=== PATIENT | female | born 1950 | race African-American/Black ===

== ENCOUNTER → 2016-10-05 | Outpatient (CLI) | payer MEDICARE, OTHER ==
[~2016-10-05] MED LIST: 1-ME1LIQ PO; ACCUTES19 XX; APIX5TAB PO; ASPI81TA11 PO; ASPI81TA82 PO; ATOR1TAB18 PO; ATOR80TA41 PO; CALC1CAP PO; CALC667C PO; CARA1TAB6 PO; CEPH-460 PO; ENAL10TA PO; ENAL10TA7 PO; ENEMENE6 RECTAL; FREEKIT6; GABA300 PO; GABA300C5 PO; GLYC2SUP RECTAL; INSU-92; KION15SU PO; LANTUS2P SQ; NOVOLOGP2 SQ; ONETKIT9; OXYC30TA PO; PROT40TA PO; WALKER WHEELS/F1 MIS; WALKER/ADULT/FO1 MIS; [UNRECOGNIZED DRUG - CODE]; [UNRECOGNIZED DRUG - CODE]; [UNRECOGNIZED DRUG - SUPPLY]
[2016-10-05 07:59] LABS: HEMATOCRIT 37.7 % (35.0-46.0); MEAN CELL VOLUME 84.3 FL (80.0-100.0); MEAN CORPUSCULAR HEMOGLOBIN 26.2 PG (27.0-34.0); MEAN CORPUSCULAR HGB CONC 31.1 % (32.0-36.0); PLATELET COUNT 253 TH/MM3 (150-450); RED BLOOD COUNT 4.47 MIL/MM3 (4.00-5.30); RED CELL DISTRIBUTION WIDTH 15.3 % (11.6-17.2); REVIEW FLAG FINAL; WHITE BLOOD COUNT 7.6 TH/MM3 (4.0-11.0)
[2016-10-05 08:20] LABS: ANION GAP 13 MEQ/L (5-15); AST (GOT) 15 U/L (15-37); BICARBONATE 27.5 MEQ/L (21.0-32.0); BLOOD UREA NITROGEN 92 MG/DL (7-18); CHLORIDE 97 MEQ/L (98-107); GLOMERULAR FILTRATION RATE 4 ML/MIN (>89); GLUCOSE,FASTING 120 MG/DL (74-99); POTASSIUM 4.8 MEQ/L (3.5-5.1); SODIUM (NA) 137 MEQ/L (136-145)
[2016-10-05 08:22] LABS: ALT (GPT) 16 U/L (10-53)
[2016-10-05 08:24] LABS: ALKALINE PHOSPHATASE 108 U/L (45-117); HDL CHOLESTEROL 86.5 MG/DL (40.0-60.0); LDL CHOLESTEROL 93 MG/DL (0-99); TOTAL BILIRUBIN ADULT 0.2 MG/DL (0.2-1.0)
[2016-10-05 16:43] LABS: HEMOGLOBIN A1a 1.3 %; HEMOGLOBIN A1b 1.2 %; HEMOGLOBIN Ao 77.2 %; HEMOGLOBIN F 1.9 %; HEMOGLOBIN LA1C 2.4 %; HEMOGLOBIN P3 5.6 %
== END ==
LOC: CLAB 07:20
PROVIDERS: ATTEND Hospitalist
DX: G89.29 Other chronic pain (principal); N18.6 End stage renal disease; E11.01 Type 2 diabetes mellitus with hyperosmolarity with coma; E11.22 Type 2 diabetes mellitus with diabetic chronic kidney disease; D63.1 Anemia in chronic kidney disease
CPT/HCPCS: 36415; 80053; 80061; 82043; 83036; 85027

== ENCOUNTER 2016-10-20 23:01 | Emergency (ER) | payer MEDICARE, OTHER ==
[~2016-10-20 23:01] MED LIST changes: -APIX5TAB PO; -ASPI81TA11 PO; -ATOR1TAB18 PO; -CALC1CAP PO; -CARA1TAB6 PO; -CEPH-460 PO; -ENAL10TA7 PO; -ENEMENE6 RECTAL; -GABA300C5 PO; -GLYC2SUP RECTAL; -KION15SU PO; -PROT40TA PO; -WALKER/ADULT/FO1 MIS; -[UNRECOGNIZED DRUG - CODE]
[2016-10-20 23:03] VITALS: BP 182/79; PULSE 91; RESP 16; TEMP 98.4; O2SAT 100
[2016-10-20] MEDS ORDERED: ATOR1TAB18 PO (23:20)
[2016-10-20] MEDS ORDERED: GABA300C5 PO (23:20)
[2016-10-20] MEDS ORDERED: ENAL10TA PO (23:20)
[2016-10-20] MEDS ORDERED: ASPI81TA11 PO (23:20)
[2016-10-20 23:26] VITALS: RESP 18; O2SAT 98
[2016-10-20] MEDS ORDERED: SODIUM CHLORIDE 0.9% FLUSH 10 ML FLUSH IVF PRN (23:30)
[2016-10-20 23:45] LABS: AUTOMATED NEUTROPHIL # 9.1 TH/MM3 (1.8-7.7); BASOPHIL # 0.1 TH/MM3 (0-0.2); BASOPHIL % 0.9 % (0.0-2.0); EOSINOPHIL % 0.3 % (0.0-4.0); HEMATOCRIT 42.1 % (35.0-46.0); HEMO FLAGS DIFF FINAL; LYMPH % 15.2 % (9.0-44.0); LYMPHOCYTE # 1.8 TH/MM3 (1.0-4.8); MEAN CELL VOLUME 83.3 FL (80.0-100.0); MEAN CORPUSCULAR HGB CONC 32.4 % (32.0-36.0); MONO % 5.8 % (0.0-8.0); NEUT % 77.8 % (16.0-70.0); PLATELET COUNT 274 TH/MM3 (150-450); RED BLOOD COUNT 5.06 MIL/MM3 (4.00-5.30); RED CELL DISTRIBUTION WIDTH 15.2 % (11.6-17.2); WHITE BLOOD COUNT 11.7 TH/MM3 (4.0-11.0)
[2016-10-20 23:53] LABS: APTT (PATIENT) 25.5 SEC (24.3-30.1); PROTHROMBIN TIME - PATIENT 10.8 SEC (9.8-11.6)
--- NOTE | 2016-10-20 23:57 | PD ---
HPI . Abdominal pain Chief Complaint: Chest Pain Time Seen by Provider: 23:22 Travel History International Travel<30 days: No Contact w/Intl Traveler<30days: No Traveled to known affect area: No History of Present Illness HPI The patient presents with the chief complaint to me of diffuse abdominal pain and constipation. The chief complaint to the nurse was chest pain. The patient states that she does not remember when she last had a bowel movement. She is also complaining with some nausea and 2 episodes of emesis. She states that she has tried Dulcolax with no relief of her constipation. She states that her abdominal pain is severe. PFSH Past Medical History Arthritis: Yes Asthma: No Autoimmune Disease: No Blood Disorders: No Depression: No Heart Rhythm Problems: No Cancer: No Cardiovascular Problems: Yes High Cholesterol: Yes Chemotherapy: No Chest Pain: Yes Congestive Heart Failure: Yes COPD: No Cerebrovascular Accident: No Coronary Artery Disease: Yes Diabetes: Yes Patient Takes Glucophage: No Dialysis: Yes (, , sat) Diminished Hearing: No Endocrine: Yes Gastrointestinal Disorders: Yes GERD: Yes Glaucoma: No Genitourinary: Yes (dialysis sat) Headaches: No Hepatitis: No Hiatal Hernia: No Hypertension: Yes Immune Disorder: No Kidney Stones: Yes Medical other: Yes (UTI) Musculoskeletal: No Neurologic: No Psychiatric: No Reproductive: No Respiratory: No Immunizations Current: Yes Myocardial Infarction: No Radiation Therapy: No Renal Failure: Yes Seizures: No Sickle Cell Disease: No Sleep Apnea: No Thyroid Disease: No Ulcer: No PNEUMOCCOCAL Vaccine (Year): 1 ?: Not Menopausal: Yes : 3 Para: 3 Tubal Ligation: Yes Past Surgical History Abdominal Surgery: Yes ( C SECTION) AICD: No Appendectomy: No Body Medical Devices: left arm fistula, 3 years ago Cardiac Surgery: No Section: Yes (X 1) Cholecystectomy: No Ear Surgery: Yes Endocrine Surgery: No Eye Surgery: Yes (laser surgery ) Genitourinary Surgery: No Gynecologic Surgery: Yes (c section) Joint Replacement: No Oral Surgery: No Pacemaker: No Thoracic Surgery: No Other Surgery: Yes Social History Alcohol Use: No Tobacco Use: No Substance Use: No Allergies-Medications (Allergen,Severity, Reaction): Coded Allergies: No Known Allergies (Verified , 10/20/16) Reported Meds & Prescriptions Reported Meds & Active Scripts Active Walker with Front Wheels (Device) 1 Mis Mis Ea .ROUTE DIRECTED Oxycodone (Oxycodone HCl) 30 Mg Tab 30 Mg PO Q8H PRN Lantus Inj (Insulin Glargine) 1,000 Unit/10 Ml Vial 50 Units SQ HS Novolog Inj (Insulin Aspart) 1,000 Unit/10 Ml Vial 1-9 Units SQ ACHS SLIDING SCALE Enalapril (Enalapril Maleate) 10 Mg Tab 10 Mg PO DAILY Carefine Pen [place] 30Gx 30G X 8 mm (Insulin Pen Needle/Carefine 30Gx 30G X 8 mm) 1 Mis Mis 1 Box .ROUTE DIRECTED Advocate Insulin Syringe/ 30G X 5/16" 0.3 ml (Insulin Syringe/Needle U-100) 1 Mis Mis Box .XX QID [syringe with needle] QID Reported Enalapril (Enalapril Maleate) 10 Mg Tab 10 Mg PO DAILY Gabapentin 300 Mg Cap 300 Mg PO TID Atorvastatin (Atorvastatin Calcium) 80 Mg Tab 80 Mg PO HS Aspirin EC (Aspirin) 81 Mg Tabdr 81 Mg PO DAILY Review of Systems Except as stated in HPI: all other systems reviewed are Neg General / Constitutional: No: Fever, Chills Cardiovascular: Positive: Chest Pain or Discomfort Respiratory: No: Shortness of Breath Gastrointestinal: Positive: Nausea, Vomiting, Abdominal Pain, Constipation Genitourinary: No: Urgency, Frequency, Dysuria Physical Exam Narrative GENERAL: The patient is lying on the stretcher with her eyes closed and a grimace on her face. SKIN: warm/dry. HEAD: Normocephalic. Atraumatic. EYES: Pupils equal and round. No scleral icterus. No injection or drainage. ENT: No nasal bleeding or discharge. Mucous membranes pink and moist. NECK: Trachea midline. Full range of motion without pain.. CARDIOVASCULAR: Regular rate and rhythm. Heart sounds are normal. RESPIRATORY: No accessory muscle use. Clear to auscultation. Breath sounds equal bilaterally. GASTROINTESTINAL: Abdomen soft. Nontender. Bowel sounds present. Nondistended. MUSCULOSKELETAL: No obvious deformities. NEUROLOGICAL: Awake and alert. No obvious cranial nerve deficits. Motor grossly within normal limits. Normal speech. PSYCHIATRIC: Appropriate mood and affect; insight and judgment normal. Data Data Last Documented VS Vital Signs Date Time Temp Pulse Resp B/P (MAP) Pulse Ox O2 Delivery O2 Flow Rate FiO2 10/20/16 23:26 18 98 10/20/16 23:03 98.4 91 Room Air Orders Orders Basic Metabolic Panel (Bmp) (10/20/16 23:22) Ckmb (Isoenzyme) Profile (10/20/16 23:22) Complete Blood Count With Diff (10/20/16 23:22) Magnesium (Mg) (10/20/16 23:22) Prothrombin Time / Inr (Pt) (10/20/16 23:22) Act Partial Throm Time (Ptt) (10/20/16 23:22) Troponin I (10/20/16:22) Chest, Single Ap (10/20/16:22) Ecg Monitoring (10/20/16:22) Iv Access Insert/Monitor (10/20/16:) Oximetry (10/20/16:22) Sodium Chloride 0.9% Flush (Ns Flush) (10/20/16 23:30) Abdomen, Flat & Upright (10/20/16 23:22) CKMB (10/20/16 23:23) CKMB% (10/20/16 23:23) Peg (High)/E-Lyte Liq (Colyte Liq) (10/21/16 00:15) Lactulose Liq (Lactulose Liq) (10/21/16 00:30) Labs Laboratory Tests Test 10/20/16 23:23 White Blood Count 11.7 TH/MM3 Red Blood Count 5.06 MIL/MM3 Hemoglobin 13.6 GM/DL Hematocrit 42.1 % Mean Corpuscular Volume 83.3 FL Mean Corpuscular Hemoglobin 27.0 PG Mean Corpuscular Hemoglobin Concent 32.4 % Red Cell Distribution Width 15.2 % Platelet Count 274 TH/MM3 Mean Platelet Volume 9.2 FL Neutrophils (%) (Auto) 77.8 % Lymphocytes (%) (Auto) 15.2 % Monocytes (%) (Auto) 5.8 % Eosinophils (%) (Auto) 0.3 % Basophils (%) (Auto) 0.9 % Neutrophils # (Auto) 9.1 TH/MM3 Lymphocytes # (Auto) 1.8 TH/MM3 Monocytes # (Auto) 0.7 TH/MM3 Eosinophils # (Auto) 0.0 TH/MM3 Basophils # (Auto) 0.1 TH/MM3 CBC Comment DIFF FINAL Differential Comment Prothrombin Time 10.8 SEC Prothromb Time International Ratio 1.0 RATIO Activated Partial Thromboplast Time 25.5 SEC Blood Urea Nitrogen 33 MG/DL Creatinine 7.00 MG/DL Random Glucose 165 MG/DL Calcium Level 9.4 MG/DL Magnesium Level 2.5 MG/DL Sodium Level 139 MEQ/L Potassium Level 4.1 MEQ/L Chloride Level 96 MEQ/L Carbon Dioxide Level 31.9 MEQ/L Anion Gap 11 MEQ/L Estimat Glomerular Filtration Rate 7 ML/MIN Total Creatine Kinase 108 U/L Creatine Kinase MB 1.0 NG/ML Troponin I LESS THAN 0.02 NG/ML MDM Medical Decision Making Medical Screen Exam Complete: Yes Emergency Medical Condition: Yes Medical Record Reviewed: Yes (medical history is significant for end-stage renal disease on dialysis, hypertension, diabetes, hyperlipidemia and chronic constipation.) Interpretation(s) EKG shows a sinus rhythm with a ventricular rate of 85. No STT wave changes. Differential Diagnosis Differential diagnosis of abdominal pain includes but is not limited to gastritis, pancreatitis, hepatitis, gastroenteritis, gallbladder disease, constipation, urinary retention, UTI, peptic ulcer disease, diverticulitis or appendicitis Narrative Course This patient presents with the chief complaint to me of diffuse abdominal pain and constipation. The chief complaint to the nurse was chest pain. A chest pain workup is in progress. CBC & BMP Diagram 10/20/16 23:23 Calcium Level 9.4, Magnesium Level 2.5 Cardiac enzymes are negative. Chest x-ray is negative for acute process. Abdominal x-ray shows a moderate amount of stool. She will be given a dose of lactulose. Diagnosis Primary Impression: Abdominal pain Qualified Codes: R10.84 - Generalized abdominal pain Additional Impression: Constipation Qualified Codes: K59.00 - Constipation, unspecified Patient Instructions: Constipation (DC), General Instructions Disposition: DISCHARGE HOME Condition: Stable Magali Huang MD Oct 20, 2016 23:57
--- NOTE | 2016-10-20 23:58 | RADRPT ---
EXAM DATE/TIME: 10/20/2016 23:36 [facility] COMPARISON: No previous studies available for comparison. INDICATIONS : Chest pain. MEDICAL HISTORY : None. SURGICAL HISTORY : section. ENCOUNTER: Initial ACUITY: 1 day PAIN SCORE: 10/10 LOCATION: Bilateral chest FINDINGS: No infiltrate, pleural effusion or pneumothorax. Trace scarring seen left lung base. Heart size stabl e, within normal limits. Slightly tortuous thoracic aorta again noted. A left subclavian stent is now seen. CONCLUSION: No evidence of acute cardiopulmonary disease. Mehdi Fung MD on October 20, 2016 at 23:56 Board Certified Radiologist. This report was verified electronically.
[2016-10-21 00:03] LABS: ANION GAP 11 MEQ/L (5-15); BICARBONATE 31.9 MEQ/L (21.0-32.0); BLOOD UREA NITROGEN 33 MG/DL (7-18); CHLORIDE 96 MEQ/L (98-107); GLOMERULAR FILTRATION RATE 7 ML/MIN (>89); MAGNESIUM 2.5 MG/DL (1.5-2.5); POTASSIUM 4.1 MEQ/L (3.5-5.1); SODIUM (NA) 139 MEQ/L (136-145)
[2016-10-21 00:07] LABS: CREATINE KINASE 108 U/L (26-192)
[2016-10-21] MEDS ORDERED: PEG (High)/E-LYTE SOLN 4000 ML BTL PO ONE (00:15)
--- NOTE | 2016-10-21 00:21 | RADRPT ---
EXAM DATE/TIME: 10/20/2016 23:37 [facility] COMPARISON: No previous studies available for comparison. INDICATIONS : Superior abdomen pain. MEDICAL HISTORY : None. SURGICAL HISTORY : section. ENCOUNTER: Initial ACUITY: 3 days PAIN SCORE: 10/10 LOCATION: abdomen. FINDINGS: No GI tract distention. Moderate stool in the colon. No free air. CONCLUSION: Moderate stool in the colon. Nonobstructive pattern. Mehdi Fung MD on October 21, 2016 at 0:16 Board Certified Radiologist. This report was verified electronically.
[2016-10-21] MEDS ORDERED: LACTULOSE SYRUP 20 GM/30 ML CUP PO ONE (00:30)
--- NOTE | 2016-10-21 09:30 | EKG ---
Date Performed: 10/20/2016 Time Performed: 23:21:20 PTAGE: 66 years EKG: Sinus rhythm Compared to prior tracing no significant change NORMAL ECG PREVIOUS TRACING : 12/24/2013 13.23 DOCTOR: Vincent Jensen Interpretating Date/Time 10/21/2016 09:28:20
[2016-10-22] MEDS ORDERED: CARA1TAB6 PO (19:26)
[2016-10-22] MEDS ORDERED: PROT40TA PO (19:26)
[2016-10-22] MEDS ORDERED: CEPH-460 PO (19:49)
[2016-10-27] MEDS ORDERED: CALC1CAP PO (18:43)
[2016-11-07] MEDS ORDERED: INSU-92 (14:32)
[2016-11-07] MEDS ORDERED: [UNRECOGNIZED DRUG - CODE] (14:32)
[2016-11-22] MEDS ORDERED: OXYC30TA PO (14:25)
[2016-11-22] MEDS ORDERED: [UNRECOGNIZED DRUG - CODE] (14:36)
[2016-11-22] MEDS ORDERED: APIX5TAB PO (14:36)
[2016-11-22] MEDS ORDERED: KION15SU PO (14:36)
[2016-11-22] MEDS ORDERED: WALKER/ADULT/FO1 MIS (14:38)
== END 2016-10-21 00:57 | disposition home or self-care (01) ==
LOC: NEPE 23:01
DX: R10.84 Generalized abdominal pain (principal); K59.00 Constipation, unspecified; R11.2 Nausea with vomiting, unspecified; R07.9 Chest pain, unspecified; E11.22 Type 2 diabetes mellitus with diabetic chronic kidney disease; I12.0 Hypertensive chronic kidney disease with stage 5 chronic kidney disease or end stage renal disease; N18.6 End stage renal disease; E78.5 Hyperlipidemia, unspecified; K21.9 Gastro-esophageal reflux disease without esophagitis
CPT/HCPCS: 71010; 74020; 80048; 82550; 82552; 83735; 84484; 85025; 85610; 85730; 93005; 99284

== ENCOUNTER 2016-10-22 14:22 | Emergency (ER) | payer MEDICARE, OTHER ==
[~2016-10-22] VITALS: Ht 180.3 cm; Wt 92.0 kg
[~2016-10-22 14:22] MED LIST changes: -1-ME1LIQ PO; -ACCUTES19 XX; +ASPI81TA11 PO; -ASPI81TA82 PO; +ATOR1TAB18 PO; -ATOR80TA41 PO; -CALC667C PO; -FREEKIT6; -GABA300 PO; +GABA300C5 PO; -ONETKIT9
[2016-10-22 14:23] VITALS: BP 139/65; PULSE 89; RESP 16; TEMP 98.4; O2SAT 98
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
[2016-10-22 15:58] LABS: AUTOMATED NEUTROPHIL # 10.8 TH/MM3 (1.8-7.7); BASOPHIL # 0.1 TH/MM3 (0-0.2); BASOPHIL % 0.5 % (0.0-2.0); HEMO FLAGS DIFF FINAL; LYMPH % 14.8 % (9.0-44.0); MEAN CELL VOLUME 85.4 FL (80.0-100.0); MEAN CORPUSCULAR HEMOGLOBIN 26.6 PG (27.0-34.0); MEAN CORPUSCULAR HGB CONC 31.1 % (32.0-36.0); MONO % 6.5 % (0.0-8.0); NEUT % 78.2 % (16.0-70.0); PLATELET COUNT 279 TH/MM3 (150-450); RED BLOOD COUNT 4.91 MIL/MM3 (4.00-5.30); RED CELL DISTRIBUTION WIDTH 15.3 % (11.6-17.2); WHITE BLOOD COUNT 13.8 TH/MM3 (4.0-11.0)
[2016-10-22 16:37] LABS: ANION GAP 19 MEQ/L (5-15)
[2016-10-22 16:41] LABS: ALKALINE PHOSPHATASE 129 U/L (45-117); ALT (GPT) 14 U/L (10-53); AST (GOT) 19 U/L (15-37); BICARBONATE 24.5 MEQ/L (21.0-32.0); BLOOD UREA NITROGEN 67 MG/DL (7-18); CHLORIDE 88 MEQ/L (98-107); GLOMERULAR FILTRATION RATE 4 ML/MIN (>89); POTASSIUM 5.6 MEQ/L (3.5-5.1); SODIUM (NA) 131 MEQ/L (136-145); TOTAL BILIRUBIN ADULT 0.6 MG/DL (0.2-1.0)
[2016-10-22] MEDS ORDERED: MORPHINE SULFATE 4 MG/ML INJ IV PUSH ONE (17:15)
[2016-10-22] MEDS ORDERED: SODIUM CHLOR 0.9% 1000 ML INJ 1,000 ML IV ONE (17:15)
[2016-10-22] MEDS ORDERED: ONDANSETRON HCL 4 MG/2 ML VIAL IV PUSH ONE (17:15)
[2016-10-22 17:57] VITALS: BP 113/53; PULSE 106; RESP 18; O2SAT 98
--- NOTE | 2016-10-22 18:26 | RADRPT ---
EXAM DATE/TIME: 10/22/2016 18:03 [facility] COMPARISON: Report only MRI LUMBAR SPINE W/O CONTRAST, September 16, 2012, 18:08. CT LUMBAR SPINE W/O CONTRAST, Sep, 13:30. INDICATIONS : Abdomen pain. ORAL CONTRAST: No oral contrast ingested. RADIATION DOSE: 9.96 CTDIvol (mGy) MEDICAL HISTORY : Cardiovascular disease. Renal calculi. Hypertension. SURGICAL HISTORY : Tubal ligation. ENCOUNTER: Initial ACUITY: 1 day PAIN SCALE: 5/10 LOCATION: Bilateral abdomen. TECHNIQUE: Volumetric scanning of the abdomen and pelvis was performed. Using automated exposure control and ad justment of the mA and/or kV according to patient size, radiation dose was kept as low as reasonably achievable to obtain optimal diagnostic quality images. DICOM format image data is available electro nically for review and comparison. FINDINGS: LOWER LUNGS: The visualized lower lungs are clear. LIVER: Homogeneous density without lesion. There is no dilation of the biliary tree. No calcified gallston es. SPLEEN: Normal size without lesion. PANCREAS: Within normal limits. KIDNEYS: Small, increased density kidneys are noted typical of chronic parenchymal disease. There is a 2 x 4 m m nonobstructing stone of the right upper pole. ADRENAL GLANDS: Within normal limits. VASCULAR: There is no aortic aneurysm. BOWEL/MESENTERY: No obstruction or acute inflammatory changes demonstrated of the gastrointestinal tract. No free flui d or free air. A small hiatal hernia is noted. ABDOMINAL WALL: Within normal limits. RETROPERITONEUM: There is no lymphadenopathy. BLADDER: No wall thickening or mass. REPRODUCTIVE: Within normal limits. INGUINAL: There is no lymphadenopathy or hernia. MUSCULOSKELETAL: Chronic end plate changes are again noted at L4/L5. There are chronic appearing but no endplate nazario es at L2/L3. CONCLUSION: 1. No obstruction or acute inflammatory changes. 2. Chronic renal disease. Nonobstructing stone of the right upper pole. 3. Small hiatal hernia. 4. Chronic endplate changes at L4/L5. I believe the patient has a history of discitis. Similar findin gs are seen at L2/L3, new since 2012. Mehdi Fung MD on October 22, 2016 at 18:19 Board Certified Radiologist. This report was verified electronically.
[2016-10-22] MEDS ORDERED: CARA1TAB6 PO (19:26)
[2016-10-22] MEDS ORDERED: PROT40TA PO (19:26)
[2016-10-22] MEDS ORDERED: SODIUM POLYSTYRENE SULFONATE SUSP 15 GM/60 ML CUP PO ONE (19:30)
[2016-10-22 19:41] LABS: BACTERIA, URINE MANY /hpf; BLOOD, URINE SMALL (NEG); COMMENT (UR) CULTURE INDICATED; CULTURE IF INDICATED CULTURE INDICATED; GLUCOSE,URINE 300 mg/dL (NEG); KETONE, URINE TRACE mg/dL (NEG); NITRITE,URINE NEG (NEG); PH, URINE 5.5 (5.0-8.5); SQUAMOUS EPITHELIAL CELL URINE 22 /hpf (0-5); URINE COLOR YELLOW (YELLW/STRAW)
[2016-10-22] MEDS ORDERED: CEPH-460 PO (19:49)
[2016-10-22] MEDS ORDERED: CEPHALEXIN MONOHYDRATE 500 MG CAP PO ONE (20:00)
--- NOTE | 2016-10-23 13:31 | EKG ---
Date Performed: 10/22/2016 Time Performed: 19:42:15 PTAGE: 66 years EKG: Normal Sinus rhythm with probable sinus node reentry Minimal nonspecific ST segment changes ABNORMAL RHYTHM ECG PREVIOUS TRACING : 10/20/2016 23.21 Since the prior tracing, the supraventricular tachycardia i s new. Tracing is otherwise without significant serial change. DOCTOR: Shanice Alvarado Interpretating Date/Time 10/23/2016 13:30:11
[2016-11-07] MEDS ORDERED: INSU-92 (14:32)
[2016-11-07] MEDS ORDERED: [UNRECOGNIZED DRUG - CODE] (14:32)
[2016-11-22] MEDS ORDERED: OXYC30TA PO (14:25)
[2016-11-22] MEDS ORDERED: KION15SU PO (14:36)
[2016-11-22] MEDS ORDERED: [UNRECOGNIZED DRUG - CODE] (14:36)
[2016-11-22] MEDS ORDERED: APIX5TAB PO (14:36)
[2016-11-22] MEDS ORDERED: WALKER/ADULT/FO1 MIS (14:38)
== END 2016-10-22 21:06 | disposition home or self-care (01) ==
LOC: NEPE 14:22
DX: K44.9 Diaphragmatic hernia without obstruction or gangrene (principal); K21.9 Gastro-esophageal reflux disease without esophagitis; E87.5 Hyperkalemia; N39.0 Urinary tract infection, site not specified; R11.2 Nausea with vomiting, unspecified; K59.00 Constipation, unspecified; R94.31 Abnormal electrocardiogram [ECG] [EKG]; N18.6 End stage renal disease; I12.0 Hypertensive chronic kidney disease with stage 5 chronic kidney disease or end stage renal disease; E11.9 Type 2 diabetes mellitus without complications; E78.5 Hyperlipidemia, unspecified; Z99.2 Dependence on renal dialysis; Z79.01 Long term (current) use of anticoagulants; Z79.4 Long term (current) use of insulin; Z87.39 Personal history of other diseases of the musculoskeletal system and connective tissue; Z86.79 Personal history of other diseases of the circulatory system; Z87.19 Personal history of other diseases of the digestive system; Z87.448 Personal history of other diseases of urinary system
CPT/HCPCS: 74176; 80053; 81001; 83690; 85025; 87086; 93005; 96361; 96374; 96375; 99285; J2270; J2405; J7030

== ENCOUNTER 2016-10-23 18:40 | Inpatient (IN) | payer MEDICARE, OTHER ==
[~2016-10-23] VITALS: Ht 180.3 cm; Wt 86.2 kg
[~2016-10-23 18:40] MED LIST changes: +CARA1TAB6 PO; +CEPH-460 PO; +PROT40TA PO
[2016-10-23 18:43] VITALS: BP 143/65; PULSE 81; RESP 16; TEMP 98.8; O2SAT 97
[2016-10-23 20:00] VITALS: BP 191/84; PULSE 84
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
[2016-10-23] MEDS ORDERED: ASPIRIN 81 MG CHEW TAB CHEW ONE (20:30)
[2016-10-23] MEDS ORDERED: NITROGLYCERIN 0.4 MG SL 25 TABS/BTL SL PRN (20:30)
[2016-10-23] MEDS ORDERED: CALCIUM GLUCONATE INJ 1 GM in SODIUM CHLORIDE 0.9% INJ 100 ML IV ONE (20:30)
[2016-10-23] MEDS ORDERED: NITROGLYCERIN 2% OINT 1 GM PACKET TOPICAL ONE (20:30)
[2016-10-23] MEDS ORDERED: SODIUM CHLOR 0.9% 250 ML INJ 250 ML IV ONE (20:30)
[2016-10-23] MEDS ORDERED: ONDANSETRON HCL 4 MG/2 ML VIAL IV PUSH ONE (20:30)
--- NOTE | 2016-10-23 20:33 | RADRPT ---
EXAM DATE/TIME: 10/23/2016 20:13 [facility] COMPARISON: CHEST SINGLE AP, October 20, 2016, 23:36. INDICATIONS : Chest pain and vomiting. MEDICAL HISTORY : None. SURGICAL HISTORY : section. ENCOUNTER: Initial ACUITY: 1 day PAIN SCORE: 6/10 LOCATION: Bilateral lower chest FINDINGS: Trace left base atelectasis. Lungs otherwise clear. No pleural effusion seen. No pneumothorax. Heart size stable, within normal limits. CONCLUSION: Minimal left base atelectasis. Mehdi Fung MD on October 23, 2016 at 20:31 Board Certified Radiologist. This report was verified electronically.
[2016-10-23 20:41] LABS: BASOPHIL # 0.1 TH/MM3 (0-0.2); BASOPHIL % 0.8 % (0.0-2.0); HEMATOCRIT 41.6 % (35.0-46.0); HEMO FLAGS DIFF FINAL; LYMPH % 7.3 % (9.0-44.0); LYMPHOCYTE # 0.8 TH/MM3 (1.0-4.8); MEAN CELL VOLUME 88.9 FL (80.0-100.0); MEAN CORPUSCULAR HEMOGLOBIN 26.5 PG (27.0-34.0); MONO % 5.9 % (0.0-8.0); PLATELET COUNT 287 TH/MM3 (150-450); RED BLOOD COUNT 4.68 MIL/MM3 (4.00-5.30); RED CELL DISTRIBUTION WIDTH 15.9 % (11.6-17.2); WHITE BLOOD COUNT 10.5 TH/MM3 (4.0-11.0)
[2016-10-23 20:48] LABS: MEAN CORPUSCULAR HGB CONC 29.8 % (32.0-36.0)
[2016-10-23] MEDS ORDERED: INSULIN HUMAN REGULAR 1,000 UNITS/10 ML VIAL IV PUSH ONE ×2 (21:45→23:15)
[2016-10-23 21:59] LABS: ALKALINE PHOSPHATASE 137 U/L (45-117); ALT (GPT) 14 U/L (10-53); ANION GAP 31 MEQ/L (5-15); AST (GOT) 12 U/L (15-37); BICARBONATE 18.8 MEQ/L (21.0-32.0); BLOOD UREA NITROGEN 85 MG/DL (7-18); CHLORIDE 78 MEQ/L (98-107); GLOMERULAR FILTRATION RATE 3 ML/MIN (>89); SODIUM (NA) 128 MEQ/L (136-145); TOTAL BILIRUBIN ADULT 0.6 MG/DL (0.2-1.0)
[2016-10-23 22:00] LABS: CREATINE KINASE 99 U/L (26-192); POTASSIUM 6.4 MEQ/L (3.5-5.1)
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
[2016-10-23] MEDS ORDERED: SODIUM POLYSTYRENE SULFONATE SUSP 15 GM/60 ML CUP PO ONE (23:00)
[2016-10-23] MEDS ORDERED: POTASSIUM CHLOR 20 MEQ PREMIX 100 ML IV PRN ×6 (23:15)
[2016-10-23] MEDS ORDERED: CHLORHEXIDINE GLUCONATE 2 % 1 PACK (2 CLOTHS) TOP PRN (23:15)
[2016-10-23] MEDS ORDERED: SODIUM BICARBONATE 8.4% SOLN 50 MEQ/50 ML VIAL IV PRN ×2 (23:15)
[2016-10-23] MEDS ORDERED: MISCELLANEOUS NURSING INFORMATION XX SCH (23:15)
[2016-10-23] MEDS ORDERED: POTASSIUM CHLOR 40 MEQ PREMIX 100 ML IV PRN ×2 (23:15)
[2016-10-23] MEDS ORDERED: SODIUM PHOSPHATE INJ 15 MMOL in SODIUM CHLORIDE 0.9% INJ 100 ML IV PRN (23:15)
[2016-10-23] MEDS ORDERED: INSULIN REGULAR (IV INFUSION) 100 UNITS in SODIUM CHLORIDE 0.9% INJ 99 ML IV SCH (23:15)
[2016-10-23 23:55] LABS: BLOOD GAS BASE EXCESS -7.6 mmol/L (-2-2); BLOOD GAS CARBOXYHEMOGLOBIN 1.7 % (0-4); BLOOD GAS HCO3 17 mmol/L (22-26); BLOOD GAS METHEMOGLOBIN 0.8 % (0-2); BLOOD GAS O2 HGB SATURATION 93 % (90-100); BLOOD GAS OXYGEN CONTENT 15.4 Vol % (12.0-20.0); BLOOD GAS PCO2 35 mmHg (38-42); BLOOD GAS PO2 83 mmHG (61-120); BLOOD GAS TOTAL HGB 11.7 G/DL (12.0-16.0); CRITICAL VALUE NO; DRAW SITE RT RADIAL; FIO2 21 %; NUMBER OF ARTERIAL PUNCTURES 1; OXYGEN DEVICE ROOM AIR; STAT YES; TEMP CORR TO 98.6; ULNAR PULSE PRESENT
[2016-10-24] VITALS (25 sets, daily range): BP systolic 72–174; BP diastolic 43–89; PULSE 78–88; RESP 11–43; TEMP 98.5–99.5; O2SAT 90–100
[2016-10-24] MEDS ORDERED: cefTRIAXone INJ 1,000 MG in SODIUM CHLORIDE 0.9% INJ 100 ML IV SCH ×2
[2016-10-24] MEDS ORDERED: SODIUM POLYSTYRENE SULFONATE SUSP 15 GM/60 ML CUP PO ONE (00:15)
[2016-10-24] MEDS ORDERED: ONDANSETRON HCL 4 MG/2 ML VIAL IV PUSH PRN (00:45)
[2016-10-24] MEDS ORDERED: HEPARIN SODIUM - IV 10,000 UNITS/10 ML VIAL IV FLUSH PRN (01:00)
[2016-10-24] MEDS ORDERED: SODIUM CHLORIDE 0.9% FLUSH 10 ML FLUSH IV FLUSH PRN (01:00)
[2016-10-24] MEDS ORDERED: MANNITOL 12.5 GM/50 ML VIAL IV PRN (01:00)
[2016-10-24] MEDS ORDERED: ACETAMINOPHEN 325 MG TAB PO PRN (01:00)
[2016-10-24] MEDS ORDERED: NITROGLYCERIN 0.4 MG SL 25 TABS/BTL SL PRN (01:00)
[2016-10-24] MEDS ORDERED: ALBUMIN HUMAN 25% 25 GM/100 ML BAGP IV PRN (01:00)
[2016-10-24] MEDS ORDERED: GELATIN 12 MM/7 MM FOAM TOPICAL PRN (01:00)
[2016-10-24] MEDS ORDERED: ONDANSETRON HCL 4 MG/2 ML VIAL IV PRN (01:00)
[2016-10-24] MEDS ORDERED: SODIUM CHLOR 0.9% 1000 ML OTHER PRN ×2 (01:00)
[2016-10-24] MEDS ORDERED: cloNIDine HCL 0.1 MG TAB PO PRN (01:00)
[2016-10-24] MEDS ORDERED: diphenhydrAMINE HCL 25 MG CAP PO PRN (01:00)
[2016-10-24] MEDS ORDERED: NS 250 ML IV PRN (01:00)
[2016-10-24] MEDS ORDERED: GENTAMICIN SULFATE (DIALYSIS USE ONLY) 20 MG/2 ML VIAL OTHER PRN (01:00)
[2016-10-24] MEDS ORDERED: HEPARIN SODIUM - IV 10,000 UNITS/10 ML VIAL OTHER PRN (01:00)
--- NOTE | 2016-10-24 01:20 | RADRPT ---
EXAM DATE/TIME: 10/24/2016 00:49 [facility] COMPARISON: No previous studies available for comparison. INDICATIONS : Abdominal pain. MEDICAL HISTORY : Cardiovascular disease. Renal calculi. Hypertension SURGICAL HISTORY : Tubal ligation. section. ENCOUNTER: Sequela ACUITY: 4 - 6 days PAIN SCORE: 8/10 LOCATION: Bilateral abomen FINDINGS: Supine view of the abdomen was performed. The abdominal bowel gas pattern is normal. No abnormal ma sses, calcifications, or organomegaly is seen. Abnormal disc space narrowing at L2-3 with endplate er osive changes. Also chronic disc disease at L4-5. CONCLUSION: 1. Bowel gas pattern unremarkable. Erosive changes at L2-3 and L4-5. Reported history of discitis. Omari Knowles MD on October 24, 2016 at 1:15 Board Certified Radiologist. This report was verified electronically.
[2016-10-24 03:56] LABS: BETA-HYDROXYBUTYRATE 3.55 MMOL/L (0.00-0.39); BICARBONATE 27.1 MEQ/L (21.0-32.0); MAGNESIUM 2.2 MG/DL (1.5-2.5); POTASSIUM 3.8 MEQ/L (3.5-5.1)
[2016-10-24] MEDS ORDERED: CHLORHEXIDINE GLUCONATE 2 % 1 PACK (2 CLOTHS) TOP SCH (04:00)
[2016-10-24 07:02] LABS: BETA-HYDROXYBUTYRATE 0.39 MMOL/L (0.00-0.39); BICARBONATE 28.2 MEQ/L (21.0-32.0)
[2016-10-24 07:08] LABS: POTASSIUM 7.9 MEQ/L (3.5-5.1)
[2016-10-24] MEDS ORDERED: INSULIN HUMAN REGULAR 1,000 UNITS/10 ML VIAL IV PUSH ONE (09:00)
[2016-10-24] MEDS ORDERED: DEXTROSE 50% IN WATER 50 ML VIAL(D50) IV PUSH ONE (09:00)
[2016-10-24] MEDS ORDERED: RESP: ALBUTEROL CONC 2.5 MG/0.5 ML NEB INH ONE (09:00)
[2016-10-24] MEDS ORDERED: CALCIUM GLUCONATE 10% 1 GM/10 ML VIAL IV ONE (09:00)
--- NOTE | 2016-10-24 09:15 | HHI.FPPN ---
Subjective Remarks Ms George is feeling better with no emesis following admission. She has some chest pain she describes as heartburn worsened with nausea and emesis with no radiation, SOB or diaphoresis and has improved. She has had no flatus or BM. Her potassium is 7.9; however, nursing explains the pt was receiving IV potassium per DKA protocol when she arrived the ICU and believes the K+ lab draw was taken from same IV line that K+ infusion was being performed. Following our interview, we ordered stat K+ lab and discussion w/nephrology led to orders for Calcium gluconate, albuterol, insulin bolus and Sodium kayexelate. S/p these treatments, she became hypotensive to 70/34 on repeated BP checks and the economic specialist was consulted. We gave a NS IVF bolus 500 ml due to ESRD, Terbutaline and phenylephrine pressor support, with growing concern for sepsis as the primary diagnosis. S/p these interventions, K+ 4.1 and BP has stable @ 90s/50s. Abx selection also changed. (Denys Head MD R1) Objective Vitals Vital Signs Date Time Temp Pulse Resp B/P (MAP) Pulse Ox O2 Delivery O2 Flow Rate FiO2 10/24/16 06:34 98.9 80 16 102/54 (70) 99 10/24/16 05:00 81 16 112/50 (70) 10/24/16 03:00 86 16 104/51 (68) 10/24/16 02:00 82 16 113/52 (72) 10/24/16 01:00 80 150/65 (93) 10/24/16 00:00 80 16 150/65 (93) 95 10/23/16 20:00 84 191/84 (119) 10/23/16 18:43 98.8 81 16 143/65 (91) 97 I/O 10/23/16 10/23/16 10/23/16 10/24/16 10/24/16 10/24/16 07:00 15:00 23:00 07:00 15:00 23:00 Intake Total 360 ml Output Total 2500 ml Balance 360 ml -2500 ml Intake IV Total 360 ml Output Hemodialysis 2500 ml (Denys Head MD R1) Result Diagram: 10/23/16200910/24/16 0610 Imaging Last Impressions Abdomen X-Ray 10/24/16 0000 Signed Impressions: Service Date/Time: Monday, October 24, 2016 00:49 - CONCLUSION: 1. Bowel gas pattern unremarkable. Erosive changes at L2-3 and L4-5. Reported history of discitis. Omari Knowles MD Chest X-Ray 10/23/161950 Signed Impressions: Service Date/Time: Sunday, October 23, 2016 20:13 - CONCLUSION: Minimal left base atelectasis. Mehdi Fung MD Objective Remarks GENERAL: Well developed, well nourished female lying in bed in NAD. AOO x 3. SKIN: No rashes, ecchymoses or lesions. Cool and dry. Missing hallux on right foot. HEAD: Atraumatic. Normocephalic. EYES: Pupils equal round and reactive. Extraocular motions intact. No scleral icterus. ENT: Nose without bleeding, purulent drainage or septal hematoma. Airway patent. NECK: Trachea midline. No lymphadenopathy. Supple, nontender, no meningeal signs. CARDIOVASCULAR: Regular rate and rhythm without murmurs, gallops, or rubs. RESPIRATORY: No wheezing or rales. No increased WOB. Clear lung manzanares bilaterally. GASTROINTESTINAL: Abdomen soft, no rebound. TTP epigastrium. BS present. MUSCULOSKELETAL: Extremities without clubbing, cyanosis, or edema. No joint tenderness, effusion, or edema noted. No calf tenderness. NEUROLOGICAL: Awake and alert. Cranial nerves II through XII intact. Motor and sensory grossly within normal limits. Normal speech. Medications and IVs Current Medications Medications (Trade) Dose Ordered Sig/Lloyd Route Start Time Stop Time Status Last Admin (Nitrostat Sl) 0.4 mg Q5M PRN SL 10/23/16 20:30 (Nitroglycerin 2% Oint) 1 inch Q6HR TOP 10/25/16 00:00 (Ecotrin Ec) 81 mg DAILY PO 10/24/16 09:00 10/24/16 09:39 (Lipitor) 80 mg HS PO 10/24/16 21:00 (Carafate) 1 gm TIDAC PO 10/24/16 08:00 10/24/16 13:50 (Heparin Inj) 5,000 units Q12HR SQ 10/24/16 09:00 10/24/16 09:39 (Miralax) 17 gm DAILY PO 10/24/16 09:00 10/24/16 09:39 (Rose-Colace) 1 tab BID PO 10/24/16 09:00 10/24/16 09:39 (Roxicodone) 10 mg Q4H PRN PO 10/24/16 00:45 (Zofran Inj) 4 mg Q6H PRN IV PUSH 10/24/16 00:45 Sodium Chloride 1,000 ml @ 0 mls/hr TITRATE PRN OTHER 10/24/16 01:00 10/24/16 00:59 (Heparin Inj) 8,000 units UNSCH PRN IV FLUSH 10/24/16 01:00 Sodium Chloride 1,000 ml @ 200 mls/hr Q5H PRN OTHER 10/24/16 01:00 Sodium Chloride 200 ml @ 0 mls/hr UNSCH PRN IV 10/24/16 01:00 (Mannitol Inj) 12.5 gm UNSCH PRN IV 10/24/16 01:00 (Albumin 25% Inj) 25 gm UNSCH PRN IV 10/24/16 01:00 (NS Flush) 5 ml UNSCH PRN IV FLUSH 10/24/16 01:00 (Heparin Inj) Dwell Heparin to f... UNSCH PRN OTHER 10/24/16 01:00 (Gentamicin (Dialysis) Inj) 10 mg UNSCH PRN OTHER 10/24/16 01:00 (Gelfoam 12 Mm/7 Mm Top) 1 foam UNSCH PRN TOPICAL 10/24/16 01:00 (Zofran Inj) 4 mg UNSCH PRN IV 10/24/16 01:00 (Tylenol) 650 mg UNSCH X1 PRN PO 10/24/16 01:00 12/18/16 00:59 (Benadryl) 25 mg UNSCH PRN PO 10/24/16 01:00 (Nitrostat Sl) 0.4 mg UNSCH PRN SL 10/24/16 01:00 (Catapres) 0.1 mg UNSCH PRN PO 10/24/16 01:00 (Protonix Inj) 40 mg Q24H IV PUSH 10/24/16 06:00 10/24/16 09:38 (Kayexalate Liq) 15 gm QID PO 10/24/16 09:00 10/24/16 21:01 10/24/16 09:38 Phenylephrine HCl 40 mg/Dextrose 500 ml @ 30 mls/hr TITRATE PRN IV 10/24/16 12:00 (Brethine Inj) 1 mg UNSCH PRN SQ 10/24/16 12:00 Vancomycin HCl 1000 mg/Sodium Chloride 250 ml @ 250 mls/hr ONCE ONCE IV 10/24/16 13:00 10/24/16 13:59 UNV Pharmacy Profile Note 0 ml @ 0 mls/hr UNSCH OTHER 10/24/16 13:00 Cefepime HCl 1000 mg/Sodium Chloride 100 ml @ 200 mls/hr Q24H IV 10/24/16 14:00 10/24/16 14:10 (Levemir Inj) 20 units Q12HR SQ 10/24/16 21:00 (NovoLOG INJ) 5 units ACHS SQ 10/24/16 17:00 UNV (NovoLOG SUPPLEMENTAL SCALE) 1 Q3H SQ 10/24/16 14:00 UNV (Denys Head MD R1) Urinary Catheter: No (Denys Head MD R1) A/P Assessment and Plan This is a 65-year-old -[place] female with a past medical history significant for type 2 diabetes, end-stage renal disease on dialysis, hypertension, hyperlipidemia, and chronic pain. Admitted for DKA (Beta hydroxybutyrate of 7.64, BG 736, HCOS 17); however, BS in 600s on admit and pH > 7.3 more consistent with HHS, then acute hyperkalemia to 7.9 (resolving), and hypotension 2/2 sepsis likely due to UTI. 10/24: -Acutely hyperkalemic between 3AM and 7AM w/ potassium at 7.9 due to KCL infusion for DKA/HHS, required hyperkalemia reversal due to ESRD on HD. S/p Kayexelate infusion, Calcium gluconate, and insulin bolus, her BS are in the 90s and potassium is 4.1 -Paged at 1045 by nursing due to hypotension w/serial BPs @ 70/34, economic specialist was consulted and was given NS IVF bolus 500 ml, Terbutaline, and phenylephrine pressor support to which she responded well and current BPs in 90s/50s and stable -Hypotension likely 2/2 UTI; stopped Cipro and started Vanc/Zosyn; stable BPs as above (Denys Head MD R1) Attending Attestation Patient seen and examined. Case reviewed and discussed with the resident team. Agree with plan of care as discussed with me and documented in the resident note. she is very sick with her missing dialysis for days. she was more of an HHS picture and also had acidosis with her renal failure. appreciate help of Intensivists (Venita Baird MD) Problem List: (1) Sepsis ICD Codes: A41.9 - Sepsis, unspecified organism Status: Acute Plan: 10/24: Pt presented with HHS and UTI, then became hypotensive after admission, suspect likely sepsis of urinary tract infection, but investigating further; pt afebrile, no tachycardia or tachypnea -Blood and urine cx pending -Originally started on Cipro, then d/c on 10/24 -Start Vancomycin 2g IV q12h and Zosyn 4.5 g IV q8h -Terbutaline and phenylephrine pressor support as per economic specialist -Supervisor Nurse consult (2) Hyperkalemia ICD Codes: E87.5 - Hyperkalemia Status: Resolved Plan: K+ of 6.4. Scheduled for dialysis. Insulin as above, Ca gluconate x 1, serial EKGs, kayexalate 15 gm PO x 1. Monitor BMP q 3 hours. 10/24: s/p HD K+ of 7.9 at 6:14AM Spoke with Nephro and was advised to give dose of Kayexelate, insulin bolus w/ dextrose, Ca gluconate, albuterol nebs and check K+ level in 2 hours. -Check stat EKG and K+--follow up K+ 4.1 at 12:08PM; EKG nsr -Nephro consulted s/p HD after admit but before K+7.9 -Monitor w/daily BMP (3) DKA (diabetic ketoacidoses) ICD Codes: E13.10 - Other specified diabetes mellitus with ketoacidosis without coma Status: Resolved Plan: Anion Gap 31, glucose 736, and ketones (Beta-hydroxy) of 7.64. ABG showed pH of 7.32, and HCO3 of 17. Given 5 units regular insulin in ED. Followed by gtt. Check BMP, Phos, and Mag q 3 hours. Admit to ICU. -After rounding, insulin gtt stopped due to normalizing blood sugar and no PO intake -10/24 @ 1500hrs Dx changed to HHS (pH > 7.3)--> all DM notes following will be annotated under that problem (4) Type 2 diabetes mellitus with hyperosmolarity without nonketotic hyperglycemic-hyperosmolar coma ([facility]) ICD Codes: E11.00 - Type 2 diabetes mellitus with hyperosmolarity without nonketotic hyperglycemic-hyperosmolar coma ([facility]) Status: Resolved Plan: Pt admitted for DKA initially with BG 736, ketones 7.36 and pH >7.3; Dx changed to HHS -BS now controlled -Low SSI protocol (5) End stage renal disease on dialysis ICD Codes: N18.6 - End stage renal disease; Z99.2 - Dependence on renal dialysis Status: Chronic Plan: Dr. Zafar aware of patient. Recommends urgent dialysis given K+ of 6.4, peaked T-Waves on EKG. We appreciate his assistance. CR of 14.11. S/P Calcium gluconate 1 gm x 1. Kayexalate 15 gm x 1 PO. 10/24: -s/p HD this morning, pt feels better; however, K+ 7.9, possible error in lab draw from same line that KCl was infusing -K+ 7.9--given Ca gluconate, albuterol, insulin bolus, kayexelate x1, per discussion with nephro -Repeat K+ @ 12:08 at 4.1 -Pt on HD //Sat schedule -Monitor AM labs (6) Elevated troponin ICD Codes: R74.8 - Abnormal levels of other serum enzymes Status: Acute Plan: Troponin elevated to 0.76 from a normal troponin on 10/20/16 of <0.02. EKG showed possible new ST segment depressions in lateral leads V5, V6 as well as inferior leads III, and AVF. If increasing troponin or further changes on EKG will consult cardiology for possible PCI. Aspirin 162 x 1, nitro past 1 inch q 6 hours, oxygen PRN O2% less than 90. Morphine 2 mg IV q 15 2 hours PRN chest pain. -stat EKG--EKG nsr and pt asymptomatic -Trops trending down from 0.74->0.76->0.54 -Cardiology consulted (7) Chronic constipation Status: Chronic Plan: Give fleets enema today x 1. Also will start rose-Colace 1 tab BID schedule in AM as well as Miralax 17 gm daily. Will get lactic acid and stool heme occult. Differential includes ischemic bowel, gastritis, peptic/duodenal ulcer, esophagitis. CT on 10/22 was unremarkable for acute intraabdominal disease/inflammation. WBC within normal limits, and no rebound or guarding on exam. (8) HYPERTENSION NOS Status: Chronic Plan: BP at goal currently. Holding home LENIN-inhibitor at this time. -10/24 Holding HTN meds as hypotensive (9) Hyperlipidemia ICD Codes: E78.5 - Hyperlipidemia Status: Chronic Plan: Continue home statin. (10) Nutrition, metabolism, and development symptoms ICD Codes: R63.8 - Other symptoms and signs concerning food and fluid intake Plan: Diet: renal diet w/restrictions -- Na <2g/day, K+ <40meq/day, Protein < 40g/day DVT ppx: Heparin 5,000 units BID Fluids: Per nephrology GI ppx: carafate 1 gm TID, pantoprazole 40 mg iv qd. [facility] Medical Team and Dr. Baird. (Denys Head MD R1) Problem Qualifiers (1) Sepsis: Qualified Codes: A41.9 - Sepsis, unspecified organism (2) DKA (diabetic ketoacidoses): Qualified Codes: E13.10 - Other specified diabetes mellitus with ketoacidosis without coma Denys Head MD R1 Oct 24, 2016 09:15 Venita Baird MD Oct 26, 2016 16:35
[2016-10-24] MEDS ORDERED: DEXTROSE 50% IN WATER 50 ML SYRINGE ONE (09:18)
[2016-10-24] MEDS ORDERED: CALCIUM GLUCONATE INJ 1 GM in SODIUM CHLORIDE 0.9% INJ 100 ML IV ONE (09:30)
[2016-10-24] MEDS: SODIUM POLYSTYRENE SULFONATE SUSP 15 GM/60 ML CUP PO SCH ×4 (09:38→21:00)
[2016-10-24] MEDS: PANTOPRAZOLE SODIUM 40 MG VIAL IV PUSH SCH (09:38)
[2016-10-24] MEDS: SUCRALFATE 1 GM TAB PO SCH ×3 (09:38→15:41)
[2016-10-24] MEDS: HEPARIN SODIUM - SQ 10,000 UNITS/ML VIAL SQ SCH ×2 (09:39→22:10)
[2016-10-24] MEDS: ASPIRIN EC 81 MG TABEC PO SCH (09:39)
[2016-10-24] MEDS: POLYETHYLENE GLYCOL 17 GM PKG PO SCH (09:39)
[2016-10-24] MEDS: DOCUSATE SODIUM 50 MG/SENNA 8.6 MG TAB PO SCH ×2 (09:39→22:09)
[2016-10-24] MEDS ORDERED: SODIUM BICARBONATE 8.4% INJ 150 MEQ in DEXTROSE 5% IN WATE 1000ML INJ 1,000 ML IV ONE ×2 (10:50)
[2016-10-24] MEDS ORDERED: SODIUM CHLORID 0.9% 500 ML INJ 500 ML IV ONE ×2 (11:00→13:15)
[2016-10-24] MEDS ORDERED: PHENYLEPHRINE 40 MG in D5W 500 ML IV PRN (12:00)
[2016-10-24] MEDS ORDERED: TERBUTALINE INJ 1 MG/ML AMP SQ PRN ×2 (12:00→13:45)
[2016-10-24] MEDS ORDERED: Vancomycin Consult Pharmacy 1 EA OTHER SCH (13:00)
--- NOTE | 2016-10-24 13:06 | PD.CONS ---
[facility] Service Critical Care Medicine Consult Requested By Dr. Baird Reason for Consult Hypotension Probable sepsis Hyperkalemia Elevated troponin Primary Care Physician Vincent Michael , Indio Harrington MD History of Present Illness Patient is a 66-year-old female, with type 2 diabetes requiring insulin, ESRD on dialysis, hyperlipidemia, hypertension, and chronic pain, who presented two days ago to ER with abdominal pain, UA showed evidence of UTI and patient apparently was given a dose of Keflex one-time dose of 500 mg Keflex by mouth, a prescription to fill. Apparently due to bad weather she did not fill it. A CT of her abdomen at that time showed no acute findings on 12/28. Patient presented back on 10/23/16 again with epigastric abdominal pain. Blood sugar was 736, with elevated anion gap and beta hydroxybutyrate consistent with DKA. Troponin was also elevated at 0.[address] elevation/ depression. Patient was admitted to [facility] service placed on DKA protocol, also was placed on Rocephin Critical care medicine was consulted today as the patient became acutely hypotensive. I immediately evaluated the patient, blood pressure was 70/40. I ordered fluid bolus with normal saline 500 ml 2. Also gave order for Kirit- Synephrine to be started as needed to keep map above 65. Recent urine culture from 10/22/16 was negative. The patient's clinical presentation is indicative of probable sepsis. 1 dose of vancomycin ordered stat for by pharmacy to dose. I also Discontinued Rocephin and start cefepime 1 g IV every 12 hours. DKA have resolved and I have transitioned to Levemir and NovoLog before meals and at bedtime with sliding scale. Cardiology consult requested for troponin elevation , continue aspirin. 2-D echo also ordered Review of Systems ROS Limitations: Other (as per [facility]) Past Family Social History Allergies: Coded Allergies: No Known Allergies (Verified , 10/22/16) Past Medical History Type 2 diabetes on insulin Hypertension ESRD on Hemodialysis Lei Castorena Sat -nephrology Dr. Zafar Hyperlipidemia Chronic pain History of osteomyelitis Past Surgical History Bilateral hallux amputation Reported Medications Keflex (Cephalexin) 500 Mg Cap 500 Mg PO Q12H 5 Days Carafate (Sucralfate) 1 Gram Tab 1 Gm PO TID Protonix (Pantoprazole Sodium) 40 Mg Tab 40 Mg PO DAILY Oxycodone (Oxycodone HCl) 30 Mg Tab 30 Mg PO Q8H PRN Lantus Inj (Insulin Glargine) 1,000 Unit/10 Ml Vial 50 Units SQ HS Novolog Inj (Insulin Aspart) 1,000 Unit/10 Ml Vial 1-9 Units SQ ACHS SLIDING SCALE Enalapril (Enalapril Maleate) 10 Mg Tab 10 Mg PO DAILY Carefine Pen [place] 30Gx 30G X 8 mm (Insulin Pen Needle/Carefine 30Gx 30G X 8 mm) 1 Mis Mis 1 Box .ROUTE DIRECTED [facility] Insulin Syringe/ 30G X 5/16" 0.3 ml (Insulin Syringe/Needle U-100) 1 Mis Mis Box .XX QID Enalapril (Enalapril Maleate) 10 Mg Tab 10 Mg PO DAILY Gabapentin 300 Mg Cap 300 Mg PO TID Atorvastatin (Atorvastatin Calcium) 80 Mg Tab 80 Mg PO HS Aspirin EC (Aspirin) 81 Mg Tabdr 81 Mg PO DAILY Active Ordered Medications Reviewed Family History Mother of complications of diabetes Father from colon cancer Social History Occasional alcohol no tobacco use Physical Exam Vital Signs Vital Signs Date Time Temp Pulse Resp B/P (MAP) Pulse Ox O2 Delivery O2 Flow Rate FiO2 10/24/16 06:34 98.9 80 16 102/54 (70) 99 10/24/16 05:00 81 16 112/50 (70) 10/24/16 03:00 86 16 104/51 (68) 10/24/16 02:00 82 16 113/52 (72) 10/24/16 01:00 80 150/65 (93) 10/24/16 00:00 80 16 150/65 (93) 95 10/23/16 20:00 84 191/84 (119) 10/23/16 18:43 98.8 81 16 143/65 (91) 97 Physical Exam GENERAL: Lying in bed not in any acute distress. Blood pressure 70/40 SKIN: No rashes, ecchymoses or lesions. Cool and dry. HEAD: Atraumatic. Normocephalic. No temporal or scalp tenderness. EYES: Pupils equal round and reactive. Extraocular motions intact. ENT: Uvula midline. Airway patent. NECK: Trachea midline. No JVD or lymphadenopathy. Supple, nontender, no meningeal signs. CARDIOVASCULAR: Regular rate and rhythm without murmurs, gallops, or rubs. RESPIRATORY: No wheezing or rales. GASTROINTESTINAL: Abdomen soft, no rebound. BS present MUSCULOSKELETAL: Extremities without clubbing, cyanosis, or edema. s/p bilateral hallux amputation NEUROLOGICAL: Awake and alert. Motor and sensory grossly within normal limits. Five out of 5 muscle strength Laboratory Laboratory Tests Test 10/23/16 20:10 10/23/16 23:40 10/24/16 01:15 10/24/16 03:10 White Blood Count 10.5 Red Blood Count 4.68 Hemoglobin 12.4 Hematocrit 41.6 Mean Corpuscular Volume 88.9 Mean Corpuscular Hemoglobin 26.5 Mean Corpuscular Hemoglobin Concent 29.8 Red Cell Distribution Width 15.9 Platelet Count 287 Mean Platelet Volume 10.1 Neutrophils (%) (Auto) 86.0 Lymphocytes (%) (Auto) 7.3 Monocytes (%) (Auto) 5.9 Eosinophils (%) (Auto) 0.0 Basophils (%) (Auto) 0.8 Neutrophils # (Auto) 9.0 Lymphocytes # (Auto) 0.8 Monocytes # (Auto) 0.6 Eosinophils # (Auto) 0.0 Basophils # (Auto) 0.1 CBC Comment DIFF FINAL Differential Comment Blood Urea Nitrogen 85 54 Creatinine 14.11 9.62 Random Glucose 736 347 Total Protein 8.3 Albumin 3.5 Calcium Level 8.5 8.0 Alkaline Phosphatase 137 Aspartate Amino Transf (AST/SGOT) 12 Alanine Aminotransferase (ALT/SGPT) 14 Total Bilirubin 0.6 Sodium Level 128 138 Potassium Level 6.4 3.8 Chloride Level 78 93 Carbon Dioxide Level 18.8 27.1 Anion Gap 31 18 Estimat Glomerular Filtration Rate 3 5 Total Creatine Kinase 99 91 Troponin I 0.76 0.73 Lipase 68 B-Hydroxybutyrate 7.64 3.55 Blood Gas Puncture Site RT RADIAL Blood Gas Patient Temperature 98.6 Blood Gas HCO3 17 Blood Gas Base Excess -7.6 Blood Gas Oxygen Saturation 93 Arterial Blood pH 7.32 Arterial Blood Partial Pressure CO2 35 Arterial Blood Partial Pressure O2 83 Arterial Blood Oxygen Content 15.4 Arterial Blood Carboxyhemoglobin 1.7 Arterial Blood Methemoglobin 0.8 Blood Gas Hemoglobin 11.7 Oxygen Delivery Device ROOM AIR Blood Gas Inspired Oxygen 21 Lactic Acid Level 1.8 Phosphorus Level 5.8 Magnesium Level 2.2 Test 10/24/16 06:10 Blood Urea Nitrogen 53 Creatinine 9.60 Random Glucose 199 Calcium Level 7.9 Phosphorus Level 5.2 Magnesium Level 2.0 Sodium Level 135 Potassium Level 7.9 Chloride Level 98 Carbon Dioxide Level 28.2 Anion Gap 9 Estimat Glomerular Filtration Rate 5 Total Creatine Kinase 93 Troponin I 0.74 B-Hydroxybutyrate 0.39 Date/Time Source Procedure Growth Status 10/24/16 00:45 Blood Peripheral Aerobic Blood Culture Pending Received 10/24/16 00:45 Blood Peripheral Anaerobic Blood Culture Pending Received Result Diagram: 10/23/16200910/24/16 0610 Imaging Chest x-ray no acute findings on my review Septic Shock Reassessment Heart: Regular rate and rhythm Lungs: Clear Skin: Cold Peripheral Pulses: Weak Right Radial Weak Left Radial Assessment and Plan Assessment and Plan NEURO: Intermittent confusion/metabolic encephalopathy - Mild delirium secondary to metabolic encephalopathy - Monitor neuro status RESP: - Nasal cannula oxygen - DuoNeb every 6 hours when necessary CV: Hypotension/shock Elevated troponin History of hypertension - Normal saline IV fluids 1000 ml bolus. Kirit-Synephrine if needed to keep map above 65 - Trend serial troponin, consult cardiology, check 2-D echo - Continue aspirin - Subcutaneous heparin for now GI: - Renal ADA diet. IV Protonix : Hyperkalemia ESRD on HD - Hyperkalemia treated with IV calcium, IV bicarbonate, IV insulin and dextrose. Also Kayexalate given - Nephrology Dr. Zafar following - HD planned for today ID: Probable sepsis - Blood cultures sent, pending at this time. Urine cx on 10/22 negative - DC Rocephin. Start cefepime 1 g IV every 12 hours and vancomycin 1 g 1 and pharmacy to dose HEME: - Monitor CBC, CMP, coags ENDO: DKA- Now resolved Type 2 diabetes - DKA has resolved. - Discontinue DKA protocol. Start Levemir 20 units every 12, NovoLog before meals and at bedtime and sliding scale. PROPH: - Bilateral lower extremity SCDs. Heparin 5000 units subcutaneous every 12, IV Protonix 40 mg daily LINES: - Utilize peripheral IVs, central line if needed. (Patient is currently refusing central line) CC time 45 Code Status Full Discussed Condition With Joey Rainey MD Oct 24, 2016 13:06
[2016-10-24] MEDS ORDERED: DEXTROSE 50% IN WATER 50 ML VIAL(D50) IV PRN (13:30)
[2016-10-24] MEDS ORDERED: GLUCAGON 1 MG/ML VIAL OTHER PRN (13:30)
[2016-10-24 13:32] LABS: POTASSIUM 4.1 MEQ/L (3.5-5.1)
[2016-10-24] MEDS ORDERED: PHENYLEPHRINE INJ 40 MG in DEXTROSE 5% IN WATE 500 ML INJ 496 ML IV PRN ×2 (13:45)
[2016-10-24] MEDS ORDERED: INSULIN DETEMIR 100 UNITS/ML VIAL SQ STA (13:57)
[2016-10-24] MEDS: CEFEPIME INJ 1,000 MG in SODIUM CHLORIDE 0.9% INJ 100 ML IV SCH (14:10)
--- NOTE | 2016-10-24 15:23 | MB ---
cc: ANIBAL MARTINEZ MD DATE OF CONSULTATION: 10/24/2016 REASON FOR CONSULTATION End-stage renal disease on hemodialysis and hyperkalemia. HISTORY OF PRESENT ILLNESS This is a 56-year-old -Monegas[place] female known to me from before with past medical history of hypertension, ischemic heart disease, peripheral vascular disease, diabetes mellitus, chronic anemia, hyperlipidemia, came with epigastric pain, nausea, shortness breath and decreased appetite. The patient has been on hemodialysis Saturday, and Saturday and she missed her dialysis yesterday because according to the patient the transportation did not come. She has this worsening epigastric pain and has nausea and not feeling well, has generalized abdominal pain and body pain and eventually came to the hospital. Here it was found that she has hyperkalemia and she has possible urinary tract infection and also has a high blood sugar. Her blood sugar on presentation was 736. The patient was treated as possible diabetic ketoacidosis with high hydroxybutyrate. She has potassium of 6.4 on presentation. The patient had hemodialysis last night. The potassium came down to 3.8 and the repeat one now is 7.9 which could be after she got the IV potassium, so she is treated for that and the repeat potassium is pending. The patient also has blood pressure on the lower side just now, before she has normal reading. She does not have any fever. She has constipation. There is no history of diarrhea. The patient claims that she has been taking her insulin regularly. PAST MEDICAL HISTORY 1. Hypertension. 2. Diabetes mellitus. 3. Ischemic heart disease. 4. Chronic anemia. 5. End-stage renal disease on hemodialysis. 6. Hyperlipidemia. 7. Peripheral vascular disease. PAST SURGICAL HISTORY 1. Right hallux amputation. 2. Left hallux amputation. 3. Cataract surgery. 4. AV fistula surgery. REVIEW OF SYSTEMS The patient has generalized weakness, feeling tired. She has nausea off and on, has vomiting, has abdominal pain and has generalized body pain and shortness of breath. There is no chest pain. She has constipation. There is no diarrhea. She denies any dysuria or hematuria. SOCIAL HISTORY The patient is , lives with her . There is no history of smoking. Occasionally drinks alcohol. ALLERGIES She has no known drug allergies. MEDICATIONS Currently she is on the following medications: 1. Aspirin 81 mg once a day. 2. MiraLax 17 grams daily. 3. Lipitor 80 mg q.h.s. 4. IV fluid, she is getting sodium bicarbonate with dextrose at 150 an hour just one dose over 4 hours. 5. Calcium gluconate one dose was given. 6. Ceftriaxone 1 gram IV q. 24 hours. 7. Protonix 40 mg q. 24-hours. 8. Kayexalate 15 grams q.i.d. 9. Carafate 1 gram t.i.d. 10. Insulin sliding scale. 11. The last potassium was given at 04:46 a.m. PHYSICAL EXAMINATION GENERAL: On examination the patient is awake, alert. She is not in acute distress. VITAL SIGNS: Her last blood pressure is 102/54, temperature 98.9, oxygen saturation 99%. HEENT: Pupils are mid constricted. Nonicteric sclerae. Conjunctivae normal. NECK: Supple. JVD is not elevated. LUNGS: The patient has bilateral good air entry with occasional wheezing. HEART: S1, S2, regular rhythm. ABDOMEN: Distended, soft, lax. There is mild epigastric tenderness. There is no rebound, rigidity. Bowel sounds positive. EXTREMITIES: There is mild pedal edema. INVESTIGATION WBC count is 10.5, hemoglobin 12.4, platelet count of 287, neutrophils 86, sodium 135, potassium 7.9, chloride 98, bicarb 28, BUN 53, creatinine 9.6, glucose 199, calcium 7.9, phosphorus 5.2. Troponin-I is 0.7. Beta-hydroxybutyrate now came down to 0.3. IMAGING STUDIES The patient had abdominal x-ray done which shows bowel gas unremarkable, erosive changes of L2-3 and L4-5. Chest x-ray was done which shows minimal left basal atelectasis. ASSESSMENT/PLAN 1. End-stage renal disease on hemodialysis. 2. Hyperkalemia. 3. Hyperglycemia with diabetic ketoacidosis. 4. Elevated troponin. 5. Hypertension. 6. History of hyperlipidemia. The patient had hemodialysis done last night and the potassium is high because she got some potassium replacement. She got treatment for that and we have a stat repeat potassium pending. If the potassium remains high, she probably will need dialysis again. Her regular dialysis days are Saturday, and Saturday. Will keep doing dialysis as needed. Continue the treatment for DKA, avoid giving any potassium or excessive fluid. Thank you for the consultation. I will follow the patient while she is in the hospital. MD KELLI Maynard/TLL /9:48 AM /2:53 PM
[2016-10-24] MEDS: INSULIN ASPART SUPPLEMENTAL SCALE SQ SCH ×4 (15:41→23:44)
[2016-10-24] MEDS ORDERED: VANCOMYCIN INJ 1,500 MG in SODIUM CHLORID 0.9% 500 ML INJ 500 ML IV ONE (16:00)
[2016-10-24 16:23] LABS: AUTOMATED NEUTROPHIL # 7.1 TH/MM3 (1.8-7.7); BASOPHIL % 0.5 % (0.0-2.0); EOSINOPHIL % 0.1 % (0.0-4.0); HEMATOCRIT 34.1 % (35.0-46.0); HEMO FLAGS DIFF FINAL; LYMPHOCYTE # 1.4 TH/MM3 (1.0-4.8); MEAN CELL VOLUME 83.9 FL (80.0-100.0); MEAN CORPUSCULAR HEMOGLOBIN 26.3 PG (27.0-34.0); MEAN CORPUSCULAR HGB CONC 31.4 % (32.0-36.0); MONO % 9.1 % (0.0-8.0); NEUT % 75.3 % (16.0-70.0); PLATELET COUNT 214 TH/MM3 (150-450); RED BLOOD COUNT 4.06 MIL/MM3 (4.00-5.30); RED CELL DISTRIBUTION WIDTH 15.1 % (11.6-17.2); WHITE BLOOD COUNT 9.5 TH/MM3 (4.0-11.0)
[2016-10-24] MEDS ORDERED: INSULIN ASPART SUPPLEMENTAL SCALE SQ SCH (17:00)
[2016-10-24 17:02] LABS: POTASSIUM 4.3 MEQ/L (3.5-5.1)
[2016-10-24] MEDS: INSULIN ASPART 1,000 UNITS/10 ML VIAL SQ SCH ×2 (18:30→21:00)
--- NOTE | 2016-10-24 18:58 | MB ---
cc: TRICIA COLLAZO DATE OF CONSULTATION: 10/24/2016 REASON FOR CONSULTATION: Abnormal troponin levels, chest pain. HISTORY OF PRESENT ILLNESS The patient is a 66-year-old -Vietnamese female with a history of diabetes, end-stage renal disease, hyperlipidemia, hypertension, who presented to the hospital with a three to four day history of nausea, vomiting, chest pain. The patient states about 4 days ago she began to experience diffuse chest discomfort described as "burning" associated with nausea without shortness of breath or diaphoresis. The chest discomfort would persist in a constant fashion throughout most of the day. On admission to the hospital, she was found to have evidence for diabetic ketoacidosis. In the last few hours, she has felt considerably improved with nearly complete resolution of the chest discomfort as well as the nausea. The patient has had poor oral intake this week. She denies dizziness, syncope, near syncope, palpitations. Occasionally she experiences dependent pedal edema. PAST MEDICAL HISTORY 1. Diabetes 2. End-stage renal disease currently getting hemodialysis three days a week. 3. Hyperlipidemia. 4. Hypertension. PAST SURGICAL HISTORY 1. section. 2. Tubal ligation. 3. Laser eye surgery. 4. 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 CURRENT CARDIAC MEDICATIONS 1. Nitro paste 1 inch q. 6 hours. 2. Atorvastatin 80 milligrams p.o. q hs. 3. Aspirin 81 mg p.o. daily 4. Heparin 5000 units subcutaneously q.12 hours. ALLERGIES NO KNOWN DRUG ALLERGIES. FAMILY HISTORY There is no significant family history of early myocardial infarction. Her mother from complications of diabetes. Her dad from rectal cancer. SOCIAL HISTORY: The patient denies any history of alcohol or tobacco abuse. REVIEW OF SYSTEMS: As in the history of present illness, otherwise negative or noncontributory. She also denies abdominal pain, melena, dyspepsia, bright red blood per rectum, fevers, wheezing. PHYSICAL EXAMINATION: On physical examination her blood pressure is 97/52 with a pulse of 86, respirations 12. GENERAL: She is a well-developed, well-nourished -Vietnamese female in no acute distress. HEENT examination: Jugular venous pressure is 9 cm of water. Carotid pulses are 2+ bilaterally and without bruits. CHEST: Examination of the chest reveals clear lung manzanares. CARDIAC examination: She has a regular rhythm and rate with a grade 2/6 systolic ejection murmur heard throughout the precordium. No gallop is audible. The S2 heart sound is normal. ABDOMEN: On abdominal examination she has a soft, nontender abdomen. Bowel sounds are present. There is no definite hepatosplenomegaly. EXTREMITIES: Examination of extremities reveals no clubbing, cyanosis or edema. LABORATORY DATA Includes sodium 135, potassium 4.1, BUN 53, creatinine 9.60, troponin 0.74, CK 109, WBC 10.5, hemoglobin 12.4, platelets 287. X-RAYS: Chest x-ray shows no acute disease. EKG shows sinus rhythm, nonspecific inferior and lateral ST and T-wave abnormalities. IMPRESSION Slightly abnormal troponin levels, overall atypical chest pains in this 66-year-old -Vietnamese female with a history of diabetes, end-stage renal disease, hypertension, hyperlipidemia admitted with diabetic ketoacidosis. Troponin levels are slightly abnormal, although difficult to interpret in the setting of end-stage renal disease. CK levels are negative for myocardial infarction, despite prolonged chest discomfort for the last 3-4 days. She does have minor, though dynamic, ST segment and T-wave changes on EKG in the inferior and lateral leads. The patient also has risk factors for coronary artery disease including diabetes, hyperlipidemia, and hypertension. At this time she is chest pain free. She has had considerable improvement in her blood sugars with therapy. RECOMMENDATIONS: 1. Await her 2-D echocardiogram. 2. Check a nuclear stress test to rule out significant myocardial ischemia. 3. Hold off on beta-prakash or LENIN inhibitor therapy at this time given her relatively low blood pressure. 4. Continue daily aspirin. 5. Check a fasting lipid profile. MD JUAN JOSE Israel/SAVAGE /3:50 PM /6:37 PM MTDFernanda
[2016-10-24] MEDS: INSULIN DETEMIR 100 UNITS/ML VIAL SQ SCH (21:00)
--- NOTE | 2016-10-24 21:07 | EKG ---
Date Performed: 10/24/2016 Time Performed: 09:19:43 PTAGE: 66 years EKG: Sinus rhythm NONSPECIFIC T-WAVE ABNORMALITY BORDERLINE ECG PREVIOUS TRACING : 10/24/2016 02.01 Compared to prior tracing no significant change DOCTOR: Sampson Garrison Interpretating Date/Time 10/24/2016 21:06:32
--- NOTE | 2016-10-24 21:20 | EKG ---
Date Performed: 10/24/2016 Time Performed: 02:01:48 PTAGE: 66 years EKG: Sinus rhythm WITH SHORT NE INTERVAL MILD ST CHANGES INTRAVENTRICULAR CONDUCTION DELAY ABNORMAL ECG Compared to pr ior tracing no significant change DOCTOR: Sampson Garrison Interpretating Date/Time 10/24/2016 21:19:26
--- NOTE | 2016-10-24 21:34 | EKG ---
Date Performed: 10/23/2016 Time Performed: 20:13:23 PTAGE: 66 years EKG: SINUS TACHYCARDIA POSSIBLE LEFT ATRIAL ENLARGEMENT NONSPECIFIC ST CHANGES ABNORMAL ECG Comp ared to prior tracing no significant change DOCTOR: Sampson Garrison Interpretating Date/Time 10/24/2016 21:33:19
[2016-10-24] MEDS: ATORVASTATIN 80 MG TAB PO SCH (22:09)
[2016-10-24] MEDS ORDERED: INSULIN DETEMIR 100 UNITS/ML VIAL SQ SCH (22:10)
[2016-10-24] MEDS: NITROGLYCERIN 2% OINT 1 GM PACKET TOP SCH (23:45)
[2016-10-25] VITALS (45 sets, daily range): BP systolic 69–181; BP diastolic 33–74; PULSE 74–148; RESP 5–43; TEMP 98.8–99.7; O2SAT 78–100
[2016-10-25] MEDS: INSULIN ASPART SUPPLEMENTAL SCALE SQ SCH ×3 (03:00→09:00)
[2016-10-25 03:22] LABS: POTASSIUM 3.1 MEQ/L (3.5-5.1)
[2016-10-25 03:24] LABS: HDL CHOLESTEROL 61.3 MG/DL (40.0-60.0)
[2016-10-25] MEDS ORDERED: GLUCAGON 1 MG/ML VIAL IM PRN (04:45)
[2016-10-25] MEDS ORDERED: DEXTROSE 50% IN WATER 50 ML VIAL(D50) IV PRN (04:45)
[2016-10-25] MEDS ORDERED: DEXTROSE 50% IN WATER 50 ML SYRINGE ONE (05:00)
[2016-10-25] MEDS: PANTOPRAZOLE SODIUM 40 MG VIAL IV PUSH SCH (05:03)
[2016-10-25] MEDS: NITROGLYCERIN 2% OINT 1 GM PACKET TOP SCH ×2 (05:07→05:10)
[2016-10-25 06:04] LABS: AUTOMATED NEUTROPHIL # 7.1 TH/MM3 (1.8-7.7); BASOPHIL % 0.4 % (0.0-2.0); EOSINOPHIL # 0.1 TH/MM3 (0-0.4); EOSINOPHIL % 0.5 % (0.0-4.0); HEMATOCRIT 34.9 % (35.0-46.0); HEMO FLAGS DIFF FINAL; LYMPH % 21.8 % (9.0-44.0); LYMPHOCYTE # 2.3 TH/MM3 (1.0-4.8); MEAN CELL VOLUME 84.8 FL (80.0-100.0); MEAN CORPUSCULAR HEMOGLOBIN 26.4 PG (27.0-34.0); MEAN CORPUSCULAR HGB CONC 31.2 % (32.0-36.0); MONO % 9.2 % (0.0-8.0); NEUT % 68.1 % (16.0-70.0); PLATELET COUNT 186 TH/MM3 (150-450); RED BLOOD COUNT 4.11 MIL/MM3 (4.00-5.30); RED CELL DISTRIBUTION WIDTH 15.2 % (11.6-17.2); WHITE BLOOD COUNT 10.4 TH/MM3 (4.0-11.0)
[2016-10-25 06:24] LABS: ALKALINE PHOSPHATASE 91 U/L (45-117); ALT (GPT) 11 U/L (10-53); AMYLASE 14 U/L (25-115); ANION GAP 12 MEQ/L (5-15); AST (GOT) 12 U/L (15-37); BICARBONATE 28.1 MEQ/L (21.0-32.0); BLOOD UREA NITROGEN 55 MG/DL (7-18); CHLORIDE 97 MEQ/L (98-107); CREATINE KINASE 121 U/L (26-192); GLOMERULAR FILTRATION RATE 4 ML/MIN (>89); MAGNESIUM 2.1 MG/DL (1.5-2.5); POTASSIUM 3.1 MEQ/L (3.5-5.1); SODIUM (NA) 137 MEQ/L (136-145); TOTAL BILIRUBIN ADULT 0.4 MG/DL (0.2-1.0)
[2016-10-25] MEDS ORDERED: METOPROLOL TARTRATE 5 MG/5 ML VIAL IV PUSH ONE (07:30)
[2016-10-25] MEDS: INSULIN ASPART 1,000 UNITS/10 ML VIAL SQ SCH ×2 (08:00→12:00)
--- NOTE | 2016-10-25 08:08 | PD.CARD.PN ---
Subjective Subjective Remarks Complains of sore throat. Slept poorly. No CP this morning. No dyspnea, dizziness, nausea, palpitations. Objective Medications Item Value Date Time Nitroglycerin 1 inch 10/25/16 0000 (Nitroglycerin Q6HR/TOP 2% Oint) Atorvastatin 80 mg 10/24/16 2100 Calcium HS/PO 10/24/16 2209 (Lipitor) Phenylephrine HCl 500 ml @ 30 mls/hr 10/24/16 1200 40 mg/Dextrose TITRATE PRN/IV Aspirin 81 mg 10/24/16 0900 (Ecotrin Ec) DAILY/PO 10/24/16 0939 Heparin Sodium 5,000 units 10/24/16 0900 (Porcine) Q12HR/SQ 10/24/16 2210 (Heparin Inj) Vital Signs / I&O Vital Signs Date Time Temp Pulse Resp B/P (MAP) Pulse Ox O2 Delivery O2 Flow Rate FiO2 10/25/16 07:30 143 95/53 (67) 96 10/25/16 07:00 148 106/56 (73) 97 10/25/16 06:30 138 11 103/70 (81) 96 10/25/16 06:00 135 9 130/57 (81) 95 10/25/16 06:00 135 10/25/16 05:30 79 12 99/52 (68) 92 10/25/16 05:16 75 11 85/48 (60) 78 10/25/16 05:00 74 17 80/41 (54) 89 10/25/16 04:30 80 12 101/49 (66) 94 10/25/16 04:00 78 10/25/16 04:00 99.7 78 11 105/51 (69) 89 10/25/16 03:30 79 10 101/45 (63) 93 10/25/16 03:00 80 11 112/54 (73) 94 10/25/16 02:30 78 23 99/51 (67) 84 10/25/16 02:00 79 12 104/58 (73) 95 10/25/16 02:00 79 10/25/16 01:00 79 10 94/54 (67) 96 10/25/16 00:45 83 16 90/46 (61) 97 10/25/16 00:43 79 14 72/40 (51) 97 10/25/16 00:33 77 10 69/33 (45) 85 10/25/16 00:30 77 9 77/39 (52) 85 10/25/16 00:00 79 8 113/56 (75) 99 10/25/16 00:00 79 10/24/16 23:30 85 20 168/89 (115) 99 10/24/16 23:27 86 43 174/75 (108) 99 10/24/16 23:00 81 16 98 10/24/16 22:30 84 11 107/57 (74) 95 10/24/16 22:00 83 10/24/16 22:00 83 11 144/68 (93) 10/24/16 21:30 80 12 91/49 (63) 90 10/24/16 21:00 80 19 106/52 (70) 90 10/24/16 20:30 83 16 122/59 (80) 97 10/24/16 20:00 84 10/24/16 20:00 99.5 84 15 119/56 (77) 98 10/24/16 19:38 86 16 103/55 (71) 97 10/24/16 19:37 86 20 73/43 (53) 97 10/24/16 19:31 85 17 72/46 (55) 96 10/24/16 19:00 85 15 136/61 (86) 95 10/24/16 18:00 88 10/24/16 16:00 98.9 84 19 124/60 (81) 100 10/24/16 16:00 84 10/24/16 14:00 84 10/24/16 12:00 99.0 86 12 97/52 (67) 100 10/24/16 12:00 86 10/24/16 10:00 79 I/O 10/24/16 10/24/16 10/24/16 10/25/16 10/25/16 10/25/16 07:00 15:00 23:00 07:00 15:00 23:00 Intake Total 610 ml 3700 ml 520 ml Output Total 2500 ml 0 ml Balance -2500 ml 610 ml 3700 ml 520 ml Intake IV Total 610 ml 3700 ml 520 ml Output Urine Total 0 ml Hemodialysis 2500 ml # Voids 1 # Bowel Movements 0 0 Physical Exam GENERAL: Well developed, well nourished. No acute distress. HEENT: Jugular venous pressure is normal. CHEST: Lungs clear to auscultation anteriorly. CARDIAC: Tachycardic irregular rhythm without S3, S4. II/ diffuse systolic murmur. Normal S2. ABDOMEN: Soft, nontender, no hepatosplenomegaly. Bowel sounds present. EXTREMITIES: No clubbing, cyanosis, or edema. Laboratory Laboratory Tests Test 10/24/16 12:08 10/24/16 15:48 10/24/16 20:05 10/24/16 23:59 Potassium Level 4.1 MEQ/L 4.3 MEQ/L 3.2 MEQ/L 3.2 MEQ/L Total Creatine Kinase 109 U/L Troponin I 0.56 NG/ML White Blood Count 9.5 TH/MM3 Red Blood Count 4.06 MIL/MM3 Hemoglobin 10.7 GM/DL Hematocrit 34.1 % Mean Corpuscular Volume 83.9 FL Mean Corpuscular Hemoglobin 26.3 PG Mean Corpuscular Hemoglobin Concent 31.4 % Red Cell Distribution Width 15.1 % Platelet Count 214 TH/MM3 Mean Platelet Volume 9.2 FL Neutrophils (%) (Auto) 75.3 % Lymphocytes (%) (Auto) 15.0 % Monocytes (%) (Auto) 9.1 % Eosinophils (%) (Auto) 0.1 % Basophils (%) (Auto) 0.5 % Neutrophils # (Auto) 7.1 TH/MM3 Lymphocytes # (Auto) 1.4 TH/MM3 Monocytes # (Auto) 0.9 TH/MM3 Eosinophils # (Auto) 0.0 TH/MM3 Basophils # (Auto) 0.0 TH/MM3 CBC Comment DIFF FINAL Differential Comment Thyroid Stimulating Hormone 3rd Gen 0.309 uIU/ML Random Cortisol 18.2 MCG/DL Test 10/25/16 02:53 10/25/16 05:45 Potassium Level 3.1 MEQ/L 3.1 MEQ/L Triglycerides Level 68 MG/DL 72 MG/DL Cholesterol Level 174 MG/DL 178 MG/DL LDL Cholesterol 99 MG/DL 99 MG/DL HDL Cholesterol 61.3 MG/DL 65.0 MG/DL Cholesterol/HDL Ratio 2.83 RATIO 2.73 RATIO White Blood Count 10.4 TH/MM3 Red Blood Count 4.11 MIL/MM3 Hemoglobin 10.9 GM/DL Hematocrit 34.9 % Mean Corpuscular Volume 84.8 FL Mean Corpuscular Hemoglobin 26.4 PG Mean Corpuscular Hemoglobin Concent 31.2 % Red Cell Distribution Width 15.2 % Platelet Count 186 TH/MM3 Mean Platelet Volume 9.4 FL Neutrophils (%) (Auto) 68.1 % Lymphocytes (%) (Auto) 21.8 % Monocytes (%) (Auto) 9.2 % Eosinophils (%) (Auto) 0.5 % Basophils (%) (Auto) 0.4 % Neutrophils # (Auto) 7.1 TH/MM3 Lymphocytes # (Auto) 2.3 TH/MM3 Monocytes # (Auto) 1.0 TH/MM3 Eosinophils # (Auto) 0.1 TH/MM3 Basophils # (Auto) 0.0 TH/MM3 CBC Comment DIFF FINAL Differential Comment Blood Urea Nitrogen 55 MG/DL Creatinine 10.68 MG/DL Random Glucose 118 MG/DL Total Protein 6.3 GM/DL Albumin 2.5 GM/DL Calcium Level 7.8 MG/DL Phosphorus Level 6.3 MG/DL Magnesium Level 2.1 MG/DL Alkaline Phosphatase 91 U/L Aspartate Amino Transf (AST/SGOT) 12 U/L Alanine Aminotransferase (ALT/SGPT) 11 U/L Total Bilirubin 0.4 MG/DL Sodium Level 137 MEQ/L Chloride Level 97 MEQ/L Carbon Dioxide Level 28.1 MEQ/L Anion Gap 12 MEQ/L Estimat Glomerular Filtration Rate 4 ML/MIN Lactic Acid Level 0.9 mmol/L Total Creatine Kinase 121 U/L Troponin I 0.79 NG/ML Amylase Level 14 U/L Lipase 46 U/L Assessment and Plan Problem List: (1) Elevated troponin ICD Codes: R74.8 - Abnormal levels of other serum enzymes Status: Acute Plan: No further atypical CP. Patient now in atrial fib. Problems with intermittent hypotension throughout the night. EKG still with nonspecific ST/T changes. REC hold off on nuclear stress test until hemodynamically stable await echo check another cardiac enzyme set continue daily aspirin (2) Paroxysmal atrial fibrillation ICD Codes: I48.0 - Paroxysmal atrial fibrillation Status: Acute Plan: Now in atrial fibrillation with RVR. BP's too low for beta or calcium channel prakash. Will try to start IV Amiodarone. (3) Hypertension ICD Codes: I10 - Hypertension Status: Chronic Plan: Problems with intermittent hypotension throughout the night. Currently SBP 90's off phenylephrine. Await echo. Continue pressor support as needed. Can stop nitropaste. Code Status full code Discussed Condition With patient Problem Qualifiers (1) Hypertension: Qualified Codes: I10 - Essential (primary) hypertension Andrea Calixto MD Oct 25, 2016 08:08
[2016-10-25] MEDS ORDERED: DILTIAZEM 125 MG/NS 100 ML IV PRN ×2 (08:15)
[2016-10-25] MEDS ORDERED: HEPARIN-D5W 25,000 U/250 ML 250 ML IV PRN (08:15)
[2016-10-25] MEDS ORDERED: AMIODARONE INJ 150 MG in DEXTROSE 5% IN WATER 100ML INJ 100 ML IV ONE ×2 (08:44)
[2016-10-25] MEDS: AMIODARONE INJ 450 MG in DEXTROSE 5% IN WATE(EXCEL) INJ 241 ML IV SCH ×4 (08:54→16:29)
[2016-10-25] MEDS: POLYETHYLENE GLYCOL 17 GM PKG PO SCH (09:00)
[2016-10-25] MEDS: INSULIN DETEMIR 100 UNITS/ML VIAL SQ SCH ×2 (09:00→21:00)
[2016-10-25] MEDS: SUCRALFATE 1 GM TAB PO SCH ×3 (09:49→17:21)
[2016-10-25] MEDS: ASPIRIN EC 81 MG TABEC PO SCH (09:49)
[2016-10-25] MEDS: DOCUSATE SODIUM 50 MG/SENNA 8.6 MG TAB PO SCH ×2 (09:50→21:53)
[2016-10-25] MEDS ORDERED: POTASSIUM CHLORIDE 10 MEQ CONTROLLED RELEASE TAB PO ONE (10:30)
--- NOTE | 2016-10-25 10:39 | HHI.CCPN ---
Subjective Remarks/Hospital Course Patient is a 66-year-old female, with type 2 diabetes requiring insulin, ESRD on dialysis, hyperlipidemia, hypertension, and chronic pain, who presented two days ago to ER with abdominal pain, UA showed evidence of UTI and patient apparently was given a dose of Keflex one-time dose of 500 mg Keflex by mouth, a prescription to fill. Apparently due to bad weather she did not fill it. A CT of her abdomen at that time showed no acute findings on 12/28. Patient presented back on 10/23/16 again with epigastric abdominal pain. Blood sugar was 736, with elevated anion gap and beta hydroxybutyrate consistent with DKA. Troponin was also elevated at 0.[address] elevation/ depression. Patient was admitted to [facility] service placed on DKA protocol, also was placed on Rocephin. Critical care medicine was consulted today as the patient became acutely hypotensive. I immediately evaluated the patient, blood pressure was 70/40. I ordered fluid bolus with normal saline 500 ml 2. Also gave order for Kirit-Synephrine to be started as needed to keep map above 65. Recent urine culture from 10/22/16 was negative. The patient's clinical presentation is indicative of probable sepsis. 1 dose of vancomycin ordered stat for by pharmacy to dose. I also Discontinued Rocephin and start cefepime 1 g IV every 12 hours. DKA have resolved and I have transitioned to Levemir and NovoLog before meals and at bedtime with sliding scale. Cardiology consult requested for troponin elevation , continue aspirin. 2-D echo also ordered SUBJ 10/25: Patient developed atrial fibrillation with RVR today a.m. did not respond to 2.5 mg of metoprolol IV. Cardizem infusion ordered. Nuclear medicine stress test ordered by Dr. Calixto. Patient denies chest pain now. Hypotension has resolved. Cultures are pending Objective Vital Signs Date Time Temp Pulse Resp B/P (MAP) Pulse Ox O2 Delivery O2 Flow Rate FiO2 10/25/16 09:55 87 115/58 10/25/16 07:30 96 10/25/16 06:30 11 10/25/16 04:00 99.7 Intake and Output 10/25/16 10/25/16 10/25/16 07:59 15:59 23:59 Intake Total 520 ml Balance 520 ml Result Diagram: 10/25/16 0545 10/25/16 0545 Imaging Chest x-ray no acute findings on my review Objective Remarks GENERAL: Lying in bed not in any acute distress. HR 130-140 SKIN: Cool and dry. HEAD: Atraumatic. Normocephalic. No temporal or scalp tenderness. EYES: Pupils equal round and reactive. Extraocular motions intact. ENT: Uvula midline. Airway patent. NECK: Trachea midline. No JVD or lymphadenopathy. Supple, nontender, no meningeal signs. CARDIOVASCULAR: Atrial fibrillation with rapid ventricular response. Conducted pansystolic murmur from fistula RESPIRATORY: No wheezing or rales. GASTROINTESTINAL: Abdomen soft, no rebound. BS present MUSCULOSKELETAL: Extremities without clubbing, cyanosis, or edema. s/p bilateral hallux amputation NEUROLOGICAL: Awake and alert. Motor and sensory grossly within normal limits. Five out of 5 muscle strength A/P Assessment and Plan NEURO: Mild metabolic encephalopathy - Mild delirium secondary to metabolic encephalopathy - Monitor neuro status RESP: - Nasal cannula oxygen - DuoNeb every 6 hours when necessary CV: Atrial fibrillation with rapid ventricular response Hypotension-resolved Elevated troponin History of hypertension - Metoprolol 2.5 mg IV 1. Cardizem infusion started for rate control - Trend serial troponin, 2-D echo pending - Continue aspirin - Subcutaneous heparin for now - Cardiology Dr. Calixto. GI: - Renal ADA diet. IV Protonix : Hyperkalemia ESRD on HD - Hyperkalemia treated with IV calcium, IV bicarbonate, IV insulin and dextrose. Also Kayexalate given - Now hypokalemic, will give 30 meq KCL due to A fib - Nephrology Dr. Zafar following - HD per nephrology ID: Probable sepsis - Blood cultures sent,-follow up. Urine cx on 10/22 negative - Cefepime 1 g IV every 12 hours and vancomycin pharmacy to dose HEME: - Monitor CBC, CMP, coags ENDO: DKA- Now resolved Type 2 diabetes - DKA has resolved. - Discontinued DKA protocol. On Levemir 10 units every 12, NovoLog before meals and at bedtime and sliding scale. PROPH: - Bilateral lower extremity SCDs. Heparin 5000 units subcutaneous every 12, IV Protonix 40 mg daily LINES: - Utilize peripheral IVs, central line if needed. (Patient is currently refusing central line) CC time 32 Joey Harding MD Oct 25, 2016 10:39
[2016-10-25 13:01] LABS: PROTHROMBIN TIME - PATIENT 10.9 SEC (9.8-11.6)
[2016-10-25] MEDS: MEDIUM DOSE INSULIN NOVOLOG SUPPLEMENTAL SCALE SQ SCH ×3 (13:05→21:00)
[2016-10-25] MEDS ORDERED: GLUCAGON 1 MG/ML VIAL OTHER PRN (13:15)
[2016-10-25] MEDS ORDERED: DEXTROSE 50% IN WATER 50 ML VIAL(D50) IV PUSH PRN (13:15)
[2016-10-25] MEDS: CEFEPIME INJ 1,000 MG in SODIUM CHLORIDE 0.9% INJ 100 ML IV SCH (13:17)
--- NOTE | 2016-10-25 13:41 | HHI.FPPN ---
Subjective Remarks Overnight, patient had both hypertension and more concerning hypotension, bradypnea, a maximum temperature of 99.7, some low pulse ox, and was found to be in A. fib with RVR this morning. Diltiazem drip was started, and patient converted to a regular rate with better bp. She denies any chest pain. She c/o sore throat, but otherwise feels well. (Vinny Apodaca MD R2) Objective Vitals Vital Signs Date Time Temp Pulse Resp B/P (MAP) Pulse Ox O2 Delivery O2 Flow Rate FiO2 10/25/16 12:00 98.9 83 17 134/62 (86) 97 10/25/16 12:00 83 10/25/16 10:00 85 10/25/16 09:55 87 115/58 10/25/16 09:40 83 10/25/16 09:33 138 110/53 10/25/16 08:43 132 96/52 10/25/16 08:36 127 112/57 10/25/16 08:00 98.8 131 20 112/57 (75) 96 10/25/16 08:00 131 10/25/16 07:30 143 95/53 (67) 96 10/25/16 07:00 148 106/56 (73) 97 10/25/16 06:30 138 11 103/70 (81) 96 10/25/16 06:00 135 9 130/57 (81) 95 10/25/16 06:00 135 10/25/16 05:30 79 12 99/52 (68) 92 10/25/16 05:16 75 11 85/48 (60) 78 10/25/16 05:00 74 17 80/41 (54) 89 10/25/16 04:30 80 12 101/49 (66) 94 10/25/16 04:00 78 10/25/16 04:00 99.7 78 11 105/51 (69) 89 10/25/16 03:30 79 10 101/45 (63) 93 10/25/16 03:00 80 11 112/54 (73) 94 10/25/16 02:30 78 23 99/51 (67) 84 10/25/16 02:00 79 12 104/58 (73) 95 10/25/16 02:00 79 10/25/16 01:00 79 10 94/54 (67) 96 10/25/16 00:45 83 16 90/46 (61) 97 10/25/16 00:43 79 14 72/40 (51) 97 10/25/16 00:33 77 10 69/33 (45) 85 10/25/16 00:30 77 9 77/39 (52) 85 10/25/16 00:00 79 8 113/56 (75) 99 10/25/16 00:00 79 10/24/16 23:30 85 20 168/89 (115) 99 10/24/16 23:27 86 43 174/75 (108) 99 10/24/16 23:00 81 16 98 10/24/16 22:30 84 11 107/57 (74) 95 10/24/16 22:00 83 10/24/16 22:00 83 11 144/68 (93) 10/24/16 21:30 80 12 91/49 (63) 90 10/24/16 21:00 80 19 106/52 (70) 90 10/24/16 20:30 83 16 122/59 (80) 97 10/24/16 20:00 84 10/24/16 20:00 99.5 84 15 119/56 (77) 98 10/24/16 19:38 86 16 103/55 (71) 97 10/24/16 19:37 86 20 73/43 (53) 97 10/24/16 19:31 85 17 72/46 (55) 96 10/24/16 19:00 85 15 136/61 (86) 95 10/24/16 18:00 88 10/24/16 16:00 98.9 84 19 124/60 (81) 100 10/24/16 16:00 84 10/24/16 14:00 84 I/O 10/24/16 10/24/16 10/24/16 10/25/16 10/25/16 10/25/16 07:00 15:00 23:00 07:00 15:00 23:00 Intake Total 610 ml 3700 ml 520 ml Output Total 2500 ml 0 ml Balance -2500 ml 610 ml 3700 ml 520 ml Intake IV Total 610 ml 3700 ml 520 ml Output Urine Total 0 ml Hemodialysis 2500 ml # Voids 1 # Bowel Movements 0 0 (Vinny Apodaca MD R2) Result Diagram: 10/25/16 0545 10/25/16 0545 Imaging Last Impressions Abdomen X-Ray 10/24/16 0000 Signed Impressions: Service Date/Time: Monday, October 24, 2016 00:49 - CONCLUSION: 1. Bowel gas pattern unremarkable. Erosive changes at L2-3 and L4-5. Reported history of discitis. Omari Knowles MD Chest X-Ray 10/23/16 195 Signed Impressions: Service Date/Time: Sunday, October 23, 2016 20:13 - CONCLUSION: Minimal left base atelectasis. Mehdi Fung MD Objective Remarks GENERAL: Well developed, well nourished female lying in bed in NAD. AOO x 3. SKIN: No rashes, ecchymoses or lesions. Cool and dry. Missing hallux on right foot. HEAD: Atraumatic. Normocephalic. EYES: Pupils equal round and reactive. Extraocular motions intact. No scleral icterus. ENT: Nose without bleeding, purulent drainage or septal hematoma. Airway patent. NECK: Trachea midline. No lymphadenopathy. Supple, nontender, no meningeal signs. CARDIOVASCULAR: Regular rate and rhythm with subtle murmur, but no gallops or rubs. RESPIRATORY: No wheezing or rales. No increased WOB. Decreased breath sounds, but clear lung manzanares bilaterally. GASTROINTESTINAL: Abdomen soft, BS present. MUSCULOSKELETAL: Peripheral IVs in right arm. Fistula in left arm. Extremities without clubbing, cyanosis, or edema. No joint tenderness, effusion, or edema noted. No calf tenderness. NEUROLOGICAL: Awake and alert. Cranial nerves II through XII intact. Motor and sensory grossly within normal limits. Normal speech. (Vinny Apodaca MD R2) A/P Assessment and Plan This is a 65-year-old -[place] female with a past medical history significant for type 2 diabetes, end-stage renal disease on dialysis, hypertension, hyperlipidemia, and chronic pain. Admitted for DKA (Beta hydroxybutyrate of 7.64, BG 736, HCO3 17); however, BS in 736 on admit and pH > 7.3 more consistent with HHS. Then patient had acute hyperkalemia to 7.9, and hypotension likely 2/2 sepsis likely due to UTI. 10/24: -Acutely hyperkalemic between 3AM and 7AM w/ potassium at 7.9 due to KCL infusion for DKA/HHS, required hyperkalemia reversal due to ESRD on HD. S/p Kayexelate infusion, Calcium gluconate, and insulin bolus, her BS are in the 90s and potassium is 4.1 -Paged at 1045 by nursing due to hypotension w/serial BPs @ 70/34, electroplating laborer was consulted and was given NS IVF bolus 500 ml x2, to which she responded well -Hypotension likely 2/2 sepsis; stopped Rocephin and started Vanc/Cefepime; stable BPs as above SUBJ 10/25: Patient developed atrial fibrillation with RVR today a.m. did not respond to 2.5 mg of metoprolol IV. Cardizem infusion ordered. Nuclear medicine stress test ordered by Dr. Calixto. Patient denies chest pain now. Hypotension has resolved. Cultures are pending -hypokalemic to 3.1 today (Vinny Apodaca MD R2) Attending Attestation Patient seen and examined. Case reviewed and discussed with the resident team. Agree with plan of care as discussed with me and documented in the resident note. a fib with rvr. appreciate Cardiology. she is feeling better overall (Venita Baird MD) Problem List: (1) Atrial fibrillation with RVR ICD Codes: I48.91 - Unspecified atrial fibrillation Plan: SUBJ 10/25: Patient developed atrial fibrillation with RVR today a.m. did not respond to 2.5 mg of metoprolol IV. Cardizem infusion ordered. Hypotension has resolved with normalization of rate. - Continue diltiazem drip with plan to transition to diltiazem by mouth (2) Sepsis ICD Codes: A41.9 - Sepsis, unspecified organism Status: Acute Plan: 10/24: Pt presented with HHS, then became hypotensive after admission, suspect likely sepsis, but investigating further, awaiting cultures; pt afebrile , lactic acid 1.8 --> 0.9 -Rate Reviewer consult appreciated -Blood cx pending and urine cx from 10/22 grew mixed sole -Originally started on Rocephin, then d/c on 10/24 -Cefepime 1 g IV every 12 hours and vancomycin pharmacy to dose -pressor support as per electroplating laborer; patient was initially declining central line - Monitor CBC, CMP, coags (3) Hypotension ICD Codes: I95.9 - Hypotension, unspecified Plan: Hypotension likely due to sepsis and/or a-fib with RVR. Plan as above. (4) Type 2 diabetes mellitus with hyperosmolarity without nonketotic hyperglycemic-hyperosmolar coma ([facility]) ICD Codes: E11.00 - Type 2 diabetes mellitus with hyperosmolarity without nonketotic hyperglycemic-hyperosmolar coma ([facility]) Status: Resolved Plan: Pt with Type 2 diabetes admitted for DKA initially with BG 736, ketones 7.36 and pH >7.3; Dx changed to HHS - BS now controlled, HHS/DKA has resolved. - Discontinued DKA protocol. On Levemir 10 units every 12h, NovoLog before meals and at bedtime and sliding scale. (5) Elevated troponin ICD Codes: R74.8 - Abnormal levels of other serum enzymes Status: Acute Plan: Troponin elevated to 0.76 from a normal troponin on 10/20/16 of <0.02. EKG showed possible new ST segment depressions in lateral leads V5, V6 as well as inferior leads III, and AVF. If increasing troponin or further changes on EKG will consult cardiology for possible PCI. Aspirin 162 x 1, nitro past 1 inch q 6 hours, oxygen PRN O2% less than 90. Morphine 2 mg IV q 15 2 hours PRN chest pain. -stat EKG--EKG nsr and pt asymptomatic -Trops trending down from 0.74->0.76->0.54 -Cardiology consulted: No further atypical CP. Patient now in atrial fib. Problems with intermittent hypotension throughout the night. EKG still with nonspecific ST/T changes. REC hold off on nuclear stress test until hemodynamically stable await echo check another cardiac enzyme set continue daily aspirin (6) End stage renal disease on dialysis ICD Codes: N18.6 - End stage renal disease; Z99.2 - Dependence on renal dialysis Status: Chronic Plan: -Nephrology consulted and appreciated (7) Hypokalemia ICD Codes: E87.6 - Hypokalemia Plan: Patient with potassium of 3.1 today. -30 mEq of potassium chloride ordered and given -Continue to monitor (8) Chronic constipation Status: Chronic Plan: Give fleets enema x 1. Also will start kira-Colace 1 tab BID schedule in AM as well as Miralax 17 gm daily. Will get stool heme occult. CT on 10/22 was unremarkable for acute intraabdominal disease/inflammation. WBC within normal limits, and no rebound or guarding on exam. (9) HYPERTENSION NOS Status: Chronic Plan: Patient with history of hypertension currently hypotensive. -Holding HTN meds as hypotensive -Hold antihypertensive medications for blood pressure less than 140/90 (10) Hyperlipidemia ICD Codes: E78.5 - Hyperlipidemia Status: Chronic Plan: Continue home statin. (11) Nutrition, metabolism, and development symptoms ICD Codes: R63.8 - Other symptoms and signs concerning food and fluid intake Plan: Diet: renal diet w/restrictions -- Na <2g/day, K+ <40meq/day, Protein < 40g/day DVT ppx: Bilateral lower extremity SCDs. Heparin 5000 units subcutaneous every 12 Fluids: Per nephrology GI ppx: carafate 1 gm TID, pantoprazole 40 mg iv qd. DW Medical Team and Dr. Baird. (Vinny Apodaca MD R2) Problem Qualifiers (1) Sepsis: Qualified Codes: A41.9 - Sepsis, unspecified organism Vinny Apodaca MD R2 Oct 25, 2016 13:41 Venita Baird MD Oct 26, 2016 16:36
[2016-10-25] MEDS ORDERED: BENZOCAINE 6 MG/MENTHOL 10 MG LOZENGE BUCCAL PRN (13:45)
[2016-10-25] MEDS ORDERED: PHENOL 1.4% SOLN 180 ML BTL OROPHARYNG PRN (13:45)
--- NOTE | 2016-10-25 14:57 | RADRPT ---
EXAM DATE/TIME: 10/25/2016 11:24 [facility] COMPARISON: CHEST SINGLE AP, October 23, 2016, 20:13. INDICATIONS : Respiratory disease. MEDICAL HISTORY : Cardiovascular disease. Renal calculi. Hypertension SURGICAL HISTORY : Tubal ligation. ENCOUNTER: Subsequent ACUITY: 4 - 6 days PAIN SCORE: 3/10 LOCATION: Bilateral upper chest FINDINGS: Discoid atelectasis is noted within the left lung base. The right lung is clear. The heart and media stinal structures are normal. No pulmonary edema is noted. CONCLUSION: 1. Discoid atelectasis within the left lung base. 2. No acute focal pulmonary infiltrate or pulmonary vascular congestion. Bucky Abdi MD on October 25, 2016 at 13:17 Board Certified Radiologist. This report was verified electronically.
--- NOTE | 2016-10-25 16:28 | HHI.NPPN ---
Subjective History of Present Illness 56-year-old -[place] female known to me from before with past medical history of hypertension, ischemic heart disease, peripheral vascular disease, diabetes mellitus, chronic anemia, hyperlipidemia, came with epigastric pain, nausea, shortness breath and decreased appetite. The patient has been on hemodialysis Saturday, and Saturday and she missed her dialysis yesterday because according to the patient the transportation did not come. She has this worsening epigastric pain and has nausea and not feeling well, has generalized abdominal pain and body pain , she was found that she has hyperkalemia and she has possible urinary tract infection and also has a high blood sugar. Her blood sugar on presentation was 736. The patient was treated as possible diabetic ketoacidosis. Additional Remarks Patient is alert, feeling better, no SOB, HD done earlier. Review of Systems General Constitutional: Fatigue Respiratory Lungs: SOB Cardiovascular Cardiac: SIDDIQI Gastrointestinal Gastrointestinal: Abdominal Pain, Nausea & Vomiting Objective Data Data Vital Signs Date Time Temp Pulse Resp B/P (MAP) Pulse Ox O2 Delivery O2 Flow Rate FiO2 10/25/16 16:00 98.9 78 19 107/55 (72) 93 10/25/16 16:00 78 10/25/16 14:00 83 10/25/16 12:00 98.9 83 17 134/62 (86) 97 10/25/16 12:00 83 10/25/16 10:00 85 10/25/16 09:55 87 115/58 10/25/16 09:40 83 10/25/16 09:33 138 110/53 10/25/16 08:43 132 96/52 10/25/16 08:36 127 112/57 10/25/16 08:32 98 21 10/25/16 08:00 98.8 131 20 112/57 (75) 96 10/25/16 08:00 131 10/25/16 07:30 143 95/53 (67) 96 10/25/16 07:00 148 106/56 (73) 97 10/25/16 06:30 138 11 103/70 (81) 96 10/25/16 06:00 135 9 130/57 (81) 95 10/25/16 06:00 135 10/25/16 05:30 79 12 99/52 (68) 92 10/25/16 05:16 75 11 85/48 (60) 78 9/14/17 05:00 74 17 80/41 (54) 89 10/25/16 04:30 80 12 101/49 (66) 94 10/25/16 04:00 78 10/25/16 04:00 99.7 78 11 105/51 (69) 89 10/25/16 03:30 79 10 101/45 (63) 93 10/25/16 03:00 80 11 112/54 (73) 94 10/25/16 02:30 78 23 99/51 (67) 84 10/25/16 02:00 79 12 104/58 (73) 95 10/25/16 02:00 79 10/25/16 01:00 79 10 94/54 (67) 96 10/25/16 00:45 83 16 90/46 (61) 97 10/25/16 00:43 79 14 72/40 (51) 97 10/25/16 00:33 77 10 69/33 (45) 85 10/25/16 00:30 77 9 77/39 (52) 85 10/25/16 00:00 79 8 113/56 (75) 99 10/25/16 00:00 79 10/24/16 23:30 85 20 168/89 (115) 99 10/24/16 23:27 86 43 174/75 (108) 99 10/24/16 23:00 81 16 98 10/24/16 22:30 84 11 107/57 (74) 95 10/24/16 22:00 83 10/24/16 22:00 83 11 144/68 (93) 10/24/16 21:30 80 12 91/49 (63) 90 10/24/16 21:00 80 19 106/52 (70) 90 10/24/16 20:30 83 16 122/59 (80) 97 10/24/16 20:00 84 10/24/16 20:00 99.5 84 15 119/56 (77) 98 10/24/16 19:38 86 16 103/55 (71) 97 10/24/16 19:37 86 20 73/43 (53) 97 10/24/16 19:31 85 17 72/46 (55) 96 10/24/16 19:00 85 15 136/61 (86) 95 10/24/16 18:00 88 -: 10/25/16 0545 10/25/16 0545 Physical Exam General Appearance: No Acute Distress, Comfortable Eyes Eye Exam: Pupils Equal Throat Throat Exam: Oral Mucosa [place] & Moist Neck Neck Exam: Neck Supple Pulmonary Resp Exam: Breath Sounds Equal, No Distress, Rhonchi, Decreased Bases Cardiology CV Exam: Regular, Normal Sinus Rhythm Gastrointestinal/Abdomen GI Exam: Soft, Non-Tender, Distended Extremeties Extremities Exam: Trace Edema Neurologic Neuro Exam: Alert, Awake, Oriented Psychiatric Psych Exam: Appropriate Responses Assessment/Plan Assessment Summary: Anemia of CKD, Hypertension, Diabetes Mellitus, End Stage Renal Disease Problem List: (1) Diabetes mellitus type 2 with hyperosmolar coma, uncontrolled ICD Codes: E11.01 - Type 2 diabetes mellitus with hyperosmolarity with coma Status: Chronic (2) Anemia ICD Codes: D64.9 - Anemia Status: Chronic (3) HYPERTENSION NOS Status: Chronic (4) Hyperkalemia ICD Codes: E87.5 - Hyperkalemia Status: Resolved (5) End stage renal disease on dialysis ICD Codes: N18.6 - End stage renal disease; Z99.2 - Dependence on renal dialysis Status: Chronic Plan: Continue dialysis TTS. Monitor fluid and electrolyte status. (6) Hypertension ICD Codes: I10 - Hypertension Status: Chronic (7) Atrial fibrillation with RVR ICD Codes: I48.91 - Unspecified atrial fibrillation (8) Diabetes mellitus type 2 with complications ICD Codes: E11.8 - Diabetes mellitus type 2 with complications Status: Resolved Plan: Insulin coverage. (9) DKA (diabetic ketoacidoses) ICD Codes: E13.10 - Other specified diabetes mellitus with ketoacidosis without coma Status: Acute Plan patient has improvement in the BS and acidosis. HD was done in AM. BP is stable. Started eating, no SOB. HD to continue TTS. Seen by cardiology, to get Echo and Nuclear stress test. BP is stable, afebrile. Continue antibiotics. D/W the patient and about compliance. Problem Qualifiers (1) Hypertension: Qualified Codes: I10 - Essential (primary) hypertension (2) DKA (diabetic ketoacidoses): Qualified Codes: E08.10 - Diabetes mellitus due to underlying condition with ketoacidosis without coma Skyler Zafar MD Oct 25, 2016 16:28
[2016-10-25] MEDS ORDERED: SODIUM CHLOR 0.9% 1000 ML INJ 1,000 ML OTHER PRN ×2 (16:37)
[2016-10-25] MEDS ORDERED: SODIUM CHLOR 0.9% 1000 ML INJ 1,000 ML IV PRN (16:37)
[2016-10-25] MEDS ORDERED: ACETAMINOPHEN 325 MG TAB PO PRN (16:45)
[2016-10-25] MEDS ORDERED: SODIUM CHLORIDE 0.9% FLUSH 10 ML FLUSH IV FLUSH PRN (16:45)
[2016-10-25] MEDS ORDERED: MANNITOL 12.5 GM/50 ML VIAL IV PRN (16:45)
[2016-10-25] MEDS ORDERED: ALBUMIN HUMAN 25% 25 GM/100 ML BAGP IV PRN (16:45)
[2016-10-25] MEDS ORDERED: GELATIN 12 MM/7 MM FOAM TOP PRN (16:45)
[2016-10-25] MEDS ORDERED: HEPARIN SODIUM - IV 10,000 UNITS/10 ML VIAL PRN (16:45)
[2016-10-25] MEDS ORDERED: HEPARIN SODIUM - IV 10,000 UNITS/10 ML VIAL IV FLUSH PRN (16:45)
[2016-10-25] MEDS ORDERED: diphenhydrAMINE HCL 25 MG CAP PO PRN (16:45)
[2016-10-25] MEDS ORDERED: ONDANSETRON HCL 4 MG/2 ML VIAL IV PUSH PRN (16:45)
[2016-10-25] MEDS ORDERED: GENTAMICIN SULFATE (DIALYSIS USE ONLY) 20 MG/2 ML VIAL OTHER PRN (16:45)
[2016-10-25] MEDS ORDERED: cloNIDine HCL 0.1 MG TAB PO PRN (16:45)
[2016-10-25] MEDS ORDERED: NITROGLYCERIN 0.4 MG SL 25 TABS/BTL SL PRN (16:45)
--- NOTE | 2016-10-25 17:42 | EKG ---
Date Performed: 10/24/2016 Time Performed: 13:19:27 PTAGE: 66 years EKG: Sinus rhythm NONSPECIFIC ST & T-WAVE ABNORMALITY BORDERLINE SHORT RI INTERVAL Compared to prior tracing no signif icant change ABNORMAL ECG PREVIOUS TRACING : 10/24/2016 09.19 DOCTOR: Aroldo Wyman Interpretating Date/Time 10/25/2016 17:40:39
--- NOTE | 2016-10-25 17:44 | EKG ---
Date Performed: 10/24/2016 Time Performed: 20:43:28 PTAGE: 66 years EKG: Sinus rhythm NONSPECIFIC ST & T-WAVE ABNORMALITY BORDERLINE SHORT MT INTERVAL Compared to prior tracing no signif icant change ABNORMAL ECG PREVIOUS TRACING : 10/24/2016 17.45 DOCTOR: Aroldo Wyman Interpretating Date/Time 10/25/2016 17:44:00
--- NOTE | 2016-10-25 17:44 | EKG ---
Date Performed: 10/24/2016 Time Performed: 17:45:58 PTAGE: 66 years EKG: Sinus rhythm BORDERLINE SHORT WY INTERVAL PAC'S PRESENT NONSPECIFIC ST- T CHANGE SINCE PREVIOUS TRACING 10/24/2016 , PAC'S ARE NEW. ABNORMAL ECG PREVIOUS TRACING : 10/24/2016 13.19 DOCTOR: Aroldo Wyman Interpretating Date/Time 10/25/2016 17:43:14
[2016-10-25] MEDS: NYSTAT/DIPHENHY/LIDO MOUTHWASH (Adult) 120ML SWISH-SWAL SCH ×2 (17:48→22:02)
--- NOTE | 2016-10-25 17:48 | EKG ---
Date Performed: 10/25/2016 Time Performed: 06:47:32 PTAGE: 66 years EKG: Atrial fibrillation with rapid ventricular response. Defuse nonspecific ST-T change since p revious tracing 10/24/2016, rhythm has changed from Sinus rhythm to atrial fibrillation. ST-T change is more prominent. Abnormal ECG PREVIOUS TRACING : 10/24/2016 20.43 DOCTOR: Aroldo Wyman Interpretating Date/Time 10/25/2016 17:46:45
--- NOTE | 2016-10-25 17:48 | EKG ---
Date Performed: 10/25/2016 Time Performed: 07:24:05 PTAGE: 66 years EKG: ATRIAL FIBRILLATION WITH RAPID VENTRICULAR RESPONSE WITH ABERRANT CONDUCTION OR VENTRICULAR PREMATURE COMPLEXES NONSPECIFIC ST & T-WAVE ABNORMALITY SINCE PREVIOUS TRACING 10/24/2016, ATRIAL FIB RILLATION PERSISIT. ABNORMAL RHYTHM ECG PREVIOUS TRACING : 10/24/2016 20.43 DOCTOR: Aroldo Wyman Interpretating Date/Time 10/25/2016 17:47:42
[2016-10-25] MEDS: ATORVASTATIN 80 MG TAB PO SCH (21:53)
[2016-10-26] VITALS (12 sets, daily range): BP systolic 106–158; BP diastolic 53–74; PULSE 78–87; RESP 13–23; TEMP 97.3–99.3; O2SAT 91–100
[2016-10-26] MEDS: AMIODARONE INJ 450 MG in DEXTROSE 5% IN WATE(EXCEL) INJ 241 ML IV SCH ×4 (00:04→07:39)
[2016-10-26] MEDS: PANTOPRAZOLE SODIUM 40 MG VIAL IV PUSH SCH (03:42)
[2016-10-26 04:19] LABS: APTT (PATIENT) 33.3 SEC (24.3-30.1)
--- NOTE | 2016-10-26 06:34 | PD.CARD.PN ---
Subjective Subjective Remarks Awake. Alert. Denies CP, dyspnea, palpitations, nausea, dizziness. Objective Medications Item Value Date Time Heparin Sodium/ 250 ml @ 10 mls/hr 10/25/16 0815 Dextrose TITRATE PRN/IV 10/25/16 1314 Diltiazem HCl 125 125 ml @ 5 mls/hr 10/25/16 0815 mg/Sodium Chloride TITRATE PRN/IV 10/25/16 0836 Atorvastatin 80 mg 10/24/16 2100 Calcium HS/PO 10/25/16 2153 (Lipitor) Aspirin 81 mg 10/24/16 0900 (Ecotrin Ec) DAILY/PO 10/25/16 0949 Vital Signs / I&O Vital Signs Date Time Temp Pulse Resp B/P (MAP) Pulse Ox O2 Delivery O2 Flow Rate FiO2 10/26/16 06:00 78 10/26/16 04:00 98.9 86 13 119/56 (77) 97 10/26/16 04:00 86 10/26/16 02:00 80 10/26/16 00:04 80 104/47 10/26/16 00:00 99.0 85 13 116/55 (75) 91 10/26/16 00:00 85 10/25/16 23:15 88 19 102/53 (69) 92 10/25/16 23:00 89 11 113/56 (75) 90 10/25/16 22:45 87 7 129/57 (81) 94 10/25/16 22:30 85 5 140/49 (79) 96 10/25/16 22:15 92 20 181/74 (109) 98 10/25/16 22:00 84 10/25/16 22:00 84 22 129/58 (81) 98 10/25/16 21:45 84 15 132/58 (82) 98 10/25/16 21:30 83 22 158/67 (97) 98 10/25/16 21:15 84 43 135/62 (86) 99 10/25/16 21:00 83 15 162/71 (101) 99 10/25/16 20:49 98 10/25/16 20:45 84 13 147/65 (92) 98 10/25/16 20:30 85 11 145/66 (92) 99 10/25/16 20:15 88 16 141/63 (89) 98 10/25/16 20:00 88 10/25/16 20:00 99.1 88 11 136/63 (87) 99 10/25/16 19:45 88 13 140/63 (88) 100 10/25/16 19:30 87 16 141/64 (89) 95 10/25/16 19:15 87 16 147/65 (92) 99 10/25/16 19:00 83 19 139/65 (89) 98 10/25/16 18:00 82 10/25/16 16:00 98.9 78 19 107/55 (72) 93 10/25/16 16:00 78 10/25/16 14:00 83 10/25/16 12:00 98.9 83 17 134/62 (86) 97 10/25/16 12:00 83 10/25/16 10:00 85 10/25/16 09:55 87 115/58 10/25/16 09:40 83 10/25/16 09:33 138 110/53 10/25/16 08:43 132 96/52 10/25/16 08:36 127 112/57 10/25/16 08:32 98 21 10/25/16 08:00 98.8 131 20 112/57 (75) 96 10/25/16 08:00 131 10/25/16 07:30 143 95/53 (67) 96 10/25/16 07:00 148 106/56 (73) 97 10/25/16 06:30 138 11 103/70 (81) 96 I/O 10/25/16 10/25/16 10/25/16 10/26/16 10/26/16 10/26/16 07:00 15:00 23:00 07:00 15:00 23:00 Intake Total 520 ml 960 ml 482.4 ml Balance 520 ml 960 ml 482.4 ml Intake Oral 960 ml 240 ml IV Total 520 ml 242.4 ml # Voids 1 # Bowel Movements 0 Physical Exam GENERAL: Well developed, well nourished. No acute distress. HEENT: Jugular venous pressure is normal. CHEST: Lungs clear to auscultation anteriorly. CARDIAC: Regular rate and rhythm without S3, S4. II/ diffuse systolic murmur. Normal S2. ABDOMEN: Soft, nontender, no hepatosplenomegaly. Bowel sounds present. EXTREMITIES: No clubbing, cyanosis, or edema. Laboratory Laboratory Tests Test 10/25/16 11:52 10/25/16 23:00 10/26/16 05:30 Prothrombin Time 10.9 SEC Prothromb Time International Ratio 1.0 RATIO Activated Partial Thromboplast Time 25.0 SEC 33.3 SEC Fibrinogen 374 mg/dL Troponin I 0.61 NG/ML Assessment and Plan Problem List: (1) Elevated troponin ICD Codes: R74.8 - Abnormal levels of other serum enzymes Status: Acute Plan: No further atypical CP. Stable overnight. Back in NSR. Echo still pending. Repeat troponin only 0.61. REC proceed with Lexiscan nuclear stress test this morning await echo continue daily aspirin will have Dr. Clay see patient PRN over the weekend; will consider cath Saturday depending on nuclear stress test results (2) Paroxysmal atrial fibrillation ICD Codes: I48.0 - Paroxysmal atrial fibrillation Status: Acute Plan: Back in NSR. BP's mostly too low for beta or calcium channel prakash. Rec start oral Amiodarone. Continue heparin. (3) Hypertension ICD Codes: I10 - Hypertension Status: Chronic Plan: Still with intermittently relatively low BP's. Await echo. Code Status full code Discussed Condition With patient Problem Qualifiers (1) Hypertension: Qualified Codes: I10 - Essential (primary) hypertension Andrea Calixto MD Oct 26, 2016 06:34
[2016-10-26 07:07] LABS: BICARBONATE 26.2 MEQ/L (21.0-32.0); POTASSIUM 4.2 MEQ/L (3.5-5.1)
[2016-10-26] MEDS: MEDIUM DOSE INSULIN NOVOLOG SUPPLEMENTAL SCALE SQ SCH (08:00)
--- NOTE | 2016-10-26 08:23 | HHI.CCPN ---
Subjective Remarks/Hospital Course Patient is a 66-year-old female, with type 2 diabetes requiring insulin, ESRD on dialysis, hyperlipidemia, hypertension, and chronic pain, who presented two days ago to ER with abdominal pain, UA showed evidence of UTI and patient apparently was given a dose of Keflex one-time dose of 500 mg Keflex by mouth, a prescription to fill. Apparently due to bad weather she did not fill it. A CT of her abdomen at that time showed no acute findings on 12/28. Patient presented back on 10/23/16 again with epigastric abdominal pain. Blood sugar was 736, with elevated anion gap and beta hydroxybutyrate consistent with DKA. Troponin was also elevated at 0.[address] elevation/ depression. Patient was admitted to [facility] service placed on DKA protocol, also was placed on Rocephin. Critical care medicine was consulted today as the patient became acutely hypotensive. I immediately evaluated the patient, blood pressure was 70/40. I ordered fluid bolus with normal saline 500 ml 2. Also gave order for Kirit-Synephrine to be started as needed to keep map above 65. Recent urine culture from 10/22/16 was negative. The patient's clinical presentation is indicative of probable sepsis. 1 dose of vancomycin ordered stat for by pharmacy to dose. I also Discontinued Rocephin and start cefepime 1 g IV every 12 hours. DKA have resolved and I have transitioned to Levemir and NovoLog before meals and at bedtime with sliding scale. Cardiology consult requested for troponin elevation , continue aspirin. 2-D echo also ordered SUBJ 10/25: Patient developed atrial fibrillation with RVR today a.m. did not respond to 2.5 mg of metoprolol IV. Cardizem infusion ordered. Nuclear medicine stress test ordered by Dr. Calixto. Patient denies chest pain now. Hypotension has resolved. Cultures are pending 10/26 No events overnight. s/p HD yesterday with 3L removal. Afebrile. Off Cardizem drip back in NSR. On Heparin drip. For stress test today. Objective Vital Signs Date Time Temp Pulse Resp B/P (MAP) Pulse Ox O2 Delivery O2 Flow Rate FiO2 10/26/16 06:00 78 10/26/16 04:00 98.9 13 119/56 (77) 97 10/25/16 08:32 21 Intake and Output 9/15/17 9/15/17 9/16/17 08:00 16:00 00:00 Intake Total 482.4 ml Balance 482.4 ml Result Diagram: 10/25/16 0545 10/26/16 0530 Other Results Laboratory Tests Test 10/25/16 11:52 10/25/16 23:00 10/26/16 05:30 Prothrombin Time 10.9 SEC Prothromb Time International Ratio 1.0 RATIO Activated Partial Thromboplast Time 25.0 SEC 33.3 SEC Fibrinogen 374 mg/dL Troponin I 0.61 NG/ML 0.41 NG/ML Blood Urea Nitrogen 36 MG/DL Creatinine 8.04 MG/DL Random Glucose 446 MG/DL Calcium Level 7.7 MG/DL Phosphorus Level 4.9 MG/DL Sodium Level 132 MEQ/L Potassium Level 4.2 MEQ/L Chloride Level 90 MEQ/L Carbon Dioxide Level 26.2 MEQ/L Anion Gap 16 MEQ/L Estimat Glomerular Filtration Rate 6 ML/MIN Imaging Last Impressions Chest X-Ray 10/25/16 0000 Signed Impressions: Service Date/Time: October 11:24 - CONCLUSION: 1. Discoid atelectasis within the left lung base. 2. No acute focal pulmonary infiltrate or pulmonary vascular congestion. Bucky Abdi MD Abdomen X-Ray 10/24/16 0000 Signed Impressions: Service Date/Time: Monday, October 24, 2016 00:49 - CONCLUSION: 1. Bowel gas pattern unremarkable. Erosive changes at L2-3 and L4-5. Reported history of discitis. Omari Knowles MD Objective Remarks GENERAL: Lying in bed not in any acute distress. SKIN: Cool and dry. HEAD: Atraumatic. Normocephalic. No temporal or scalp tenderness. EYES: Pupils equal round and reactive. Extraocular motions intact. ENT: Uvula midline. Airway patent. NECK: Trachea midline. No JVD or lymphadenopathy. Supple, nontender, no meningeal signs. CARDIOVASCULAR: Atrial fibrillation with rapid ventricular response. Conducted pansystolic murmur from fistula RESPIRATORY: No wheezing or rales. GASTROINTESTINAL: Abdomen soft, no rebound. BS present MUSCULOSKELETAL: Extremities without clubbing, cyanosis, or edema. s/p bilateral hallux amputation NEUROLOGICAL: Awake and alert. Motor and sensory grossly within normal limits. Five out of 5 muscle strength A/P Assessment and Plan NEURO: Mild metabolic encephalopathy - Mild delirium secondary to metabolic encephalopathy - Monitor neuro status RESP: - Continue with oxygen keep sat >92% - DuoNeb every 6 hours when necessary CV: Atrial fibrillation with rapid ventricular response - back in NSR Hypotension-resolved Elevated troponin History of hypertension - Monitor HR and BP keep MAP>65mmHg - Continue aspirin, Lipitor, for 2d echo to eval LFV function, -stress test is negative today - Cardiology Dr. Calixto. GI: - Renal ADA diet. IV Protonix : ESRD on HD - Monitor renal function and avoid nephrotoxins. s/p HD 10/25 with 3L removal. - Nephrology Dr. Zafar following - HD per nephrology ID: Probable sepsis - Blood cultures 10/24: NGTD - Cefepime 1 g IV every 12 hours and vancomycin pharmacy to dose HEME: - Monitor CBC, CMP, coags ENDO: DKA- Now resolved Type 2 diabetes - On Levemir 10 units every 12, change SSI with accuchecks to Q4hr PROPH: - Bilateral lower extremity SCDs. Heparin drip, IV Protonix 40 mg daily LINES: - Utilize peripheral IVs, Will sign off Level 3 Silvano Madrid MD Oct 26, 2016 08:23
[2016-10-26] MEDS: SUCRALFATE 1 GM TAB PO SCH ×2 (08:35→14:05)
[2016-10-26] MEDS: ASPIRIN EC 81 MG TABEC PO SCH (08:35)
[2016-10-26] MEDS: DOCUSATE SODIUM 50 MG/SENNA 8.6 MG TAB PO SCH ×2 (08:35→20:27)
[2016-10-26] MEDS: POLYETHYLENE GLYCOL 17 GM PKG PO SCH (08:36)
[2016-10-26] MEDS: NYSTAT/DIPHENHY/LIDO MOUTHWASH (Adult) 120ML SWISH-SWAL SCH ×4 (08:36→20:29)
[2016-10-26] MEDS: INSULIN DETEMIR 100 UNITS/ML VIAL SQ SCH ×2 (09:00→20:28)
[2016-10-26 09:58] LABS: AUTOMATED NEUTROPHIL # 5.8 TH/MM3 (1.8-7.7); BASOPHIL % 0.2 % (0.0-2.0); EOSINOPHIL # 0.1 TH/MM3 (0-0.4); EOSINOPHIL % 0.7 % (0.0-4.0); HEMATOCRIT 39.9 % (35.0-46.0); HEMO FLAGS DIFF FINAL; LYMPH % 17.1 % (9.0-44.0); LYMPHOCYTE # 1.3 TH/MM3 (1.0-4.8); MEAN CELL VOLUME 86.7 FL (80.0-100.0); MEAN CORPUSCULAR HEMOGLOBIN 27.2 PG (27.0-34.0); MEAN CORPUSCULAR HGB CONC 31.4 % (32.0-36.0); MONO % 6.3 % (0.0-8.0); NEUT % 75.7 % (16.0-70.0); PLATELET COUNT 170 TH/MM3 (150-450); RED BLOOD COUNT 4.61 MIL/MM3 (4.00-5.30); RED CELL DISTRIBUTION WIDTH 15.9 % (11.6-17.2); WHITE BLOOD COUNT 7.7 TH/MM3 (4.0-11.0)
[2016-10-26] MEDS ORDERED: REGADENOSON INJ 0.4 MG/5 ML SYR ONE (12:00)
[2016-10-26] MEDS: INSULIN ASPART SUPPLEMENTAL SCALE SQ SCH ×3 (12:00→20:00)
--- NOTE | 2016-10-26 13:30 | RADRPT ---
EXAM DATE/TIME: 10/26/2016 10:58 [place] COMPARISON: No previous studies available for comparison. INDICATIONS : Mid chest pain for one day. Coronary artery disease. DOSE: 27.0 mCi Tc99m Myoview at stress. 8.6 mCi Tc99m Myoview at rest. 0.4 mg Lexiscan STRESS SYMPTOMS: None. EJECTION FRACTION: 68% MEDICAL HISTORY : Diabetes mellitus type 2. Congestive heart failure. Renal failure, chronic. SURGICAL HISTORY : section. ENCOUNTER: Initial ACUITY: 1 day PAIN SCALE: 5/10 LOCATION: Bilateral chest TECHNIQUE: The patient underwent pharmacologic stress with infusion of prescribed dose. Continuous ECG tracing was monitored during stress. Gated SPECT imaging was performed after stress and conventional SPECT i maging was performed at rest. The examination was performed on a SPECT/CT scanner, both attenuation and non-corrected datasets were reviewed. FINDINGS: DISTRIBUTION: The maximum perfused segment at stress is in the lateral wall. PERFUSION STUDY: The pattern of perfusion at stress is within normal limits. GATED STUDY: There is intact wall motion and thickening without hypokinetic or dyskinetic segments. CONCLUSION: Normal examination. RISK CATEGORY: Low (<1% Annual Mortality Rate) Mehdi Tipton MD on October 26, 2016 at 13:27 Board Certified Radiologist. This report was verified electronically.
--- NOTE | 2016-10-26 13:34 | HHI.NPPN ---
Subjective History of Present Illness 66year old on Hemodialysis done yesterday admitted with DKA BG 736, had UTI Objective Data Data Vital Signs Date Time Temp Pulse Resp B/P (MAP) Pulse Ox O2 Delivery O2 Flow Rate FiO2 10/26/16 08:00 99.3 83 18 147/67 (93) 99 10/26/16 06:00 78 10/26/16 04:00 98.9 86 13 119/56 (77) 97 10/26/16 04:00 86 10/26/16 02:00 80 10/26/16 00:04 80 104/47 10/26/16 00:00 99.0 85 13 116/55 (75) 91 10/26/16 00:00 85 10/25/16 23:15 88 19 102/53 (69) 92 10/25/16 23:00 89 11 113/56 (75) 90 10/25/16 22:45 87 7 129/57 (81) 94 10/25/16 22:30 85 5 140/49 (79) 96 10/25/16 22:15 92 20 181/74 (109) 98 10/25/16 22:00 84 10/25/16 22:00 84 22 129/58 (81) 98 10/25/16 21:45 84 15 132/58 (82) 98 10/25/16 21:30 83 22 158/67 (97) 98 10/25/16 21:15 84 43 135/62 (86) 99 10/25/16 21:00 83 15 162/71 (101) 99 10/25/16 20:49 98 10/25/16 20:45 84 13 147/65 (92) 98 10/25/16 20:30 85 11 145/66 (92) 99 10/25/16 20:15 88 16 141/63 (89) 98 10/25/16 20:00 88 10/25/16 20:00 99.1 88 11 136/63 (87) 99 10/25/16 19:45 88 13 140/63 (88) 100 10/25/16 19:30 87 16 141/64 (89) 95 10/25/16 19:15 87 16 147/65 (92) 99 10/25/16 19:00 83 19 139/65 (89) 98 10/25/16 18:00 82 10/25/16 16:00 98.9 78 19 107/55 (72) 93 10/25/16 16:00 78 10/25/16 14:00 83 -: 10/26/16 0917 10/26/16 0530 Physical Exam General Appearance: Well Developed, Well Nourished Neck Neck Exam: Neck Supple Pulmonary Resp Exam: Clear Bilaterally, Breath Sounds Equal Cardiology CV Exam: Regular, Normal Sinus Rhythm Gastrointestinal/Abdomen GI Exam: Soft, Non-Tender, Bowel Sounds Present Extremeties Extremities Exam: Trace Edema Assessment/Plan Problem List: (1) End stage renal disease on dialysis ICD Codes: N18.6 - End stage renal disease; Z99.2 - Dependence on renal dialysis Status: Chronic Plan: HD TTS done yesterday 3 L UF tolerated it well continue supportive care Follows with Dr. Zafar (2) Diabetes mellitus type 2 with complications ICD Codes: E11.8 - Diabetes mellitus type 2 with complications Status: Resolved Plan: follow BG 438 this am (3) Paroxysmal atrial fibrillation ICD Codes: I48.0 - Paroxysmal atrial fibrillation Status: Acute Plan: was on Cardizem and converted back in NSR Rachel Roe MD Oct 26, 2016 13:34
[2016-10-26] MEDS: CEFEPIME INJ 1,000 MG in SODIUM CHLORIDE 0.9% INJ 100 ML IV SCH (13:59)
[2016-10-26] MEDS ORDERED: INSULIN DETEMIR 100 UNITS/ML VIAL SQ ONE (15:00)
--- NOTE | 2016-10-26 16:15 | PD.CARD.PN ---
Assessment and Plan Problem List: (1) Elevated troponin ICD Codes: R74.8 - Abnormal levels of other serum enzymes Status: Acute (2) Paroxysmal atrial fibrillation ICD Codes: I48.0 - Paroxysmal atrial fibrillation Status: Acute (3) Hypertension ICD Codes: I10 - Hypertension Status: Chronic Assessment and Plan Asked to evaluate the patient for stopping the heparin drip since stress test was negative. Patient had an episode of Atrial Fibrillation, CHADSVASc = 2 (possibly 3, awaiting echo results for ejection fraction) Discussed with patient and about risk and benefits of anti-coagulation vs. CVA. Agree to being placed on anti-coagulation. Discussed with primary team. Plan for Eliquis 5mg BID. After receiving tonight's dose of Eliquis, heparin can be stopped 1 hour afterwards. Problem Qualifiers (1) Hypertension: Qualified Codes: I10 - Essential (primary) hypertension Adonis Clay DO Oct 26, 2016 16:15
--- NOTE | 2016-10-26 16:39 | HHI.FPPN ---
Subjective Remarks Ms George feels like she is more back to her baseline today following HD yesterday; however, her bedside BG was 446 at 0530 this morning on SSI with no basal insulin. Cardiology performed a stress test this morning that is normal. Spoke to Dr Farley today about changing her anticoagulation meds today and discussed transfer to the floor with Dr Madrid, but he would like to keep her in the ICU one more day due to her labile blood glucose levels. She denies CP, SOB, N/V/D, abdominal or DVT pain (Denys Head MD R1) Objective Vitals Vital Signs Date Time Temp Pulse Resp B/P (MAP) Pulse Ox O2 Delivery O2 Flow Rate FiO2 10/26/16 14:00 97.3 84 18 158/64 (95) 97 10/26/16 08:00 99.3 83 18 147/67 (93) 99 10/26/16 06:00 78 10/26/16 04:00 98.9 86 13 119/56 (77) 97 10/26/16 04:00 86 10/26/16 02:00 80 10/26/16 00:04 80 104/47 10/26/16 00:00 99.0 85 13 116/55 (75) 91 10/26/16 00:00 85 10/25/16 23:15 88 19 102/53 (69) 92 10/25/16 23:00 89 11 113/56 (75) 90 10/25/16 22:45 87 7 129/57 (81) 94 10/25/16 22:30 85 5 140/49 (79) 96 10/25/16 22:15 92 20 181/74 (109) 98 10/25/16 22:00 84 10/25/16 22:00 84 22 129/58 (81) 98 10/25/16 21:45 84 15 132/58 (82) 98 10/25/16 21:30 83 22 158/67 (97) 98 10/25/16 21:15 84 43 135/62 (86) 99 10/25/16 21:00 83 15 162/71 (101) 99 10/25/16 20:49 98 10/25/16 20:45 84 13 147/65 (92) 98 10/25/16 20:30 85 11 145/66 (92) 99 10/25/16 20:15 88 16 141/63 (89) 98 10/25/16 20:00 88 10/25/16 20:00 99.1 88 11 136/63 (87) 99 10/25/16 19:45 88 13 140/63 (88) 100 10/25/16 19:30 87 16 141/64 (89) 95 10/25/16 19:15 87 16 147/65 (92) 99 10/25/16 19:00 83 19 139/65 (89) 98 10/25/16 18:00 82 I/O 10/25/16 10/25/16 10/25/16 10/26/16 10/26/16 10/26/16 07:00 15:00 23:00 07:00 15:00 23:00 Intake Total 520 ml 960 ml 482.4 ml Output Total 3000 ml Balance 520 ml -2040 ml 482.4 ml Intake Oral 960 ml 240 ml IV Total 520 ml 242.4 ml Hemodialysis 3000 ml # Voids 1 # Bowel Movements 0 (Denys Head MD R1) Result Diagram: 10/26/16 0917 10/26/16 0530 Objective Remarks GENERAL: Well developed, well nourished female lying in bed in NAD. AOO x 3. SKIN: No rashes, ecchymoses or lesions. Cool and dry. Missing hallux on right foot. HEAD: Atraumatic. Normocephalic. EYES: Pupils equal round and reactive. Extraocular motions intact. No scleral icterus. ENT: Nose without bleeding, purulent drainage or septal hematoma. Airway patent. NECK: Trachea midline. No lymphadenopathy. Supple, nontender, no meningeal signs. CARDIOVASCULAR: Regular rate and rhythm with subtle murmur, but no gallops or rubs. RESPIRATORY: No wheezing or rales. No increased WOB. Decreased breath sounds, but clear lung manzanares bilaterally. GASTROINTESTINAL: Abdomen soft, BS present. MUSCULOSKELETAL: Peripheral IVs in right arm. Fistula in left arm. Extremities without clubbing, cyanosis, or edema. No joint tenderness, effusion, or edema noted. No calf tenderness. NEUROLOGICAL: Awake and alert. Cranial nerves II through XII intact. Motor and sensory grossly within normal limits. Normal speech. Procedures 10/26 - Lexiscan Stress test - normal exam Medications and IVs Current Medications Medications (Trade) Dose Ordered Sig/Lloyd Route Start Time Stop Time Status Last Admin (Nitrostat Sl) 0.4 mg Q5M PRN SL 10/23/16 20:30 (Ecotrin Ec) 81 mg DAILY PO 10/24/16 09:00 10/26/16 08:35 (Lipitor) 80 mg HS PO 10/24/16 21:00 10/25/16 21:53 (Carafate) 1 gm TIDAC PO 10/24/16 08:00 10/26/16 14:05 (Miralax) 17 gm DAILY PO 10/24/16 09:00 10/26/16 08:36 (Rose-Colace) 1 tab BID PO 10/24/16 09:00 10/26/16 08:35 (Roxicodone) 10 mg Q4H PRN PO 10/24/16 00:45 10/25/16 09:50 (Zofran Inj) 4 mg Q6H PRN IV PUSH 10/24/16 00:45 Sodium Chloride 1,000 ml @ 0 mls/hr TITRATE PRN OTHER 10/24/16 01:00 10/24/16 00:59 (Heparin Inj) 8,000 units UNSCH PRN IV FLUSH 10/24/16 01:00 Sodium Chloride 1,000 ml @ 200 mls/hr Q5H PRN OTHER 10/24/16 01:00 Sodium Chloride 200 ml @ 0 mls/hr UNSCH PRN IV 10/24/16 01:00 (Mannitol Inj) 12.5 gm UNSCH PRN IV 10/24/16 01:00 (Albumin 25% Inj) 25 gm UNSCH PRN IV 10/24/16 01:00 10/25/16 07:27 (NS Flush) 5 ml UNSCH PRN IV FLUSH 10/24/16 01:00 (Heparin Inj) Dwell Heparin to f... UNSCH PRN OTHER 10/24/16 01:00 (Gentamicin (Dialysis) Inj) 10 mg UNSCH PRN OTHER 10/24/16 01:00 (Gelfoam 12 Mm/7 Mm Top) 1 foam UNSCH PRN TOPICAL 10/24/16 01:00 (Zofran Inj) 4 mg UNSCH PRN IV 10/24/16 01:00 (Tylenol) 650 mg UNSCH X1 PRN PO 10/24/16 01:00 12/18/16 00:59 (Benadryl) 25 mg UNSCH PRN PO 10/24/16 01:00 (Nitrostat Sl) 0.4 mg UNSCH PRN SL 10/24/16 01:00 (Catapres) 0.1 mg UNSCH PRN PO 10/24/16 01:00 (Protonix Inj) 40 mg Q24H IV PUSH 10/24/16 06:00 10/26/16 03:42 (Brethine Inj) 1 mg UNSCH PRN SQ 10/24/16 12:00 Cefepime HCl 1000 mg/Sodium Chloride 100 ml @ 200 mls/hr Q24H IV 10/24/16 14:00 10/26/16 13:59 (Levemir Inj) 20 units Q12HR SQ 10/24/16 21:00 Heparin Sodium/ Dextrose 250 ml @ 10 mls/hr TITRATE PRN IV 10/25/16 08:15 10/25/16 13:14 (D50w (Vial) Inj) 50 ml UNSCH PRN IV PUSH 10/25/16 13:15 (Glucagon Inj) 1 mg UNSCH PRN OTHER 10/25/16 13:15 (Chloraseptic [place]) 2 spray Q2H PRN OROPHARYNG 10/25/16 13:45 (Chloraseptic [place]) 1 lozenge UNSCH PRN BUCCAL 10/25/16 13:45 (Magic Mouthwash Adult Liq) 10 ml QID SWISH-SWAL 10/25/16 18:00 10/26/16 13:00 Sodium Chloride 1,000 ml @ 0 mls/hr Q0M PRN OTHER 10/25/16 16:37 (Heparin Inj) 8,000 units UNSCH PRN IV FLUSH 10/25/16 16:45 Sodium Chloride 1,000 ml @ 200 mls/hr Q5H PRN IV 10/25/16 16:37 Sodium Chloride 1,000 ml @ 0 mls/hr Q0M PRN OTHER 10/25/16 16:37 (Mannitol Inj) 12.5 gm UNSCH PRN IV 10/25/16 16:45 (Albumin 25% Inj) 25 gm UNSCH PRN IV 10/25/16 16:45 (NS Flush) 5 ml UNSCH PRN IV FLUSH 10/25/16 16:45 (Heparin Inj) UNSCH PRN .XX 10/25/16 16:45 (Gentamicin (Dialysis) Inj) 20 mg UNSCH PRN OTHER 10/25/16 16:45 (Zofran Inj) 4 mg UNSCH PRN IV PUSH 10/25/16 16:45 (Tylenol) 650 mg UNSCH PRN PO 10/25/16 16:45 (Benadryl) 25 mg UNSCH PRN PO 10/25/16 16:45 (Nitrostat Sl) 0.4 mg UNSCH PRN SL 10/25/16 16:45 (Catapres) 0.1 mg UNSCH PRN PO 10/25/16 16:45 (Gelfoam 12 Mm/7 Mm Top) 1 foam UNSCH PRN TOP 10/25/16 16:45 (NovoLOG SUPPLEMENTAL SCALE) 1 Q4H SQ 10/26/16 12:00 10/26/16 12:00 (Denys Head MD R1) Urinary Catheter: No (Denys Head MD R1) A/P Assessment and Plan This is a 65-year-old -[place] female with a past medical history significant for type 2 diabetes, end-stage renal disease on dialysis, hypertension, hyperlipidemia, and chronic pain. Admitted for DKA (Beta hydroxybutyrate of 7.64, BG 736, HCO3 17); however, BS in 736 on admit and pH > 7.3 more consistent with HHS. Then patient had acute hyperkalemia to 7.9, and hypotension likely 2/2 sepsis likely due to UTI. 10/24: -Acutely hyperkalemic between 3AM and 7AM w/ potassium at 7.9 due to KCL infusion for DKA/HHS, required hyperkalemia reversal due to ESRD on HD. S/p Kayexelate infusion, Calcium gluconate, and insulin bolus, her BS are in the 90s and potassium is 4.1 -Paged at 1045 by nursing due to hypotension w/serial BPs @ 70/34, mill worker was consulted and was given NS IVF bolus 500 ml x2, to which she responded well -Hypotension likely 2/2 sepsis; stopped Rocephin and started Vanc/Cefepime; stable BPs as above SUBJ 10/25: Patient developed atrial fibrillation with RVR today a.m. did not respond to 2.5 mg of metoprolol IV. Cardizem infusion ordered. Nuclear medicine stress test ordered by Dr. Calixto. Patient denies chest pain now. Hypotension has resolved. Cultures are pending -hypokalemic to 3.1 today 10/26: Lexiscan stress test normal, pt feeling better and tolerating PO. Per discussion with Dr Farley, start Eliquis 5mg PO BID, d/c Heparin at 10PM; Dr Madrid concerned about uncontrolled blood sugars and would like to get that more controlled before moving her to the floor. (Denys Head MD R1) Attending Attestation Patient seen and examined. Case reviewed and discussed with the resident team. Agree with plan of care as discussed with me and documented in the resident note. Ms George reports having labile and poorly controlled sugars as an outpt. Her HbA1C is 10. she does not know what exactly to eat and is told different diets per renal and DM. will work on a diabetic and dietary consult as an outpt. (Venita Baird MD) Problem List: (1) Diabetes mellitus ICD Codes: E11.9 - Type 2 diabetes mellitus without complications Status: Chronic Plan: Pt BG levels at 446 this morning on SSI, DKA/HHS on admit with BG at 736. -SSI -Levemir 20 units q12h (2) Atrial fibrillation with RVR ICD Codes: I48.91 - Unspecified atrial fibrillation Plan: SUBJ 10/25: Patient developed atrial fibrillation with RVR today a.m. did not respond to 2.5 mg of metoprolol IV. Cardizem infusion ordered. Hypotension has resolved with normalization of rate. - Continue diltiazem drip with plan to transition to diltiazem by mouth -Dilt d/c 10/26 0820 hours -Keep on tele for now (3) Sepsis ICD Codes: A41.9 - Sepsis, unspecified organism Status: Resolved Plan: 10/24: Pt presented with HHS, then became hypotensive after admission, suspect likely sepsis, but investigating further, awaiting cultures; pt afebrile , lactic acid 1.8 --> 0.9 -Neighborhood Conservation Officer consult appreciated -Blood cx pending and urine cx from 10/22 grew mixed sole -Originally started on Rocephin, then d/c on 10/24 -Cefepime 1 g IV every 12 hours and vancomycin pharmacy to dose -pressor support as per mill worker; patient was initially declining central line - Monitor CBC, CMP, coags (4) Hypotension ICD Codes: I95.9 - Hypotension, unspecified Plan: Hypotension likely due to sepsis and/or a-fib with RVR. Plan as above. -Monitor vitals (5) Type 2 diabetes mellitus with hyperosmolarity without nonketotic hyperglycemic-hyperosmolar coma ([facility]) ICD Codes: E11.00 - Type 2 diabetes mellitus with hyperosmolarity without nonketotic hyperglycemic-hyperosmolar coma ([facility]) Status: Resolved Plan: Pt with Type 2 diabetes admitted for DKA initially with BG 736, ketones 7.36 and pH >7.3; Dx changed to HHS - BS now controlled, HHS/DKA has resolved. - Discontinued DKA protocol. on SSI (6) Elevated troponin ICD Codes: R74.8 - Abnormal levels of other serum enzymes Status: Acute Plan: Troponin elevated to 0.76 from a normal troponin on 10/20/16 of <0.02. EKG showed possible new ST segment depressions in lateral leads V5, V6 as well as inferior leads III, and AVF. If increasing troponin or further changes on EKG will consult cardiology for possible PCI. Aspirin 162 x 1, nitro past 1 inch q 6 hours, oxygen PRN O2% less than 90. Morphine 2 mg IV q 15 2 hours PRN chest pain. -stat EKG--EKG nsr and pt asymptomatic -Trops trending down from 0.74->0.76->0.54 -Cardiology consulted: No further atypical CP. Patient in atrial fib on 10/25 that has resolved. -Lexiscan stress test normal -ECHO pending (7) End stage renal disease on dialysis ICD Codes: N18.6 - End stage renal disease; Z99.2 - Dependence on renal dialysis Status: Chronic Plan: -Nephrology consulted and appreciated (8) Hypokalemia ICD Codes: E87.6 - Hypokalemia Plan: Patient with potassium of 4.2 today. -Continue to monitor (9) Chronic constipation Status: Chronic Plan: Give fleets enema x 1. Also will start rose-Colace 1 tab BID schedule in AM as well as Miralax 17 gm daily. Will get stool heme occult. CT on 10/22 was unremarkable for acute intraabdominal disease/inflammation. WBC within normal limits, and no rebound or guarding on exam. (10) HYPERTENSION NOS Status: Chronic Plan: Patient with history of hypertension but was hypotensive on 10/24 and . Normal to hypertensive today -Holding HTN meds as hypotensive -Hold antihypertensive medications for blood pressure less than 140/90 (11) Hyperlipidemia ICD Codes: E78.5 - Hyperlipidemia Status: Chronic Plan: Continue home statin. (12) Nutrition, metabolism, and development symptoms ICD Codes: R63.8 - Other symptoms and signs concerning food and fluid intake Plan: Diet: renal diet w/restrictions -- Na <2g/day, K+ <40meq/day, Protein < 40g/day DVT ppx: Bilateral lower extremity SCDs. D/c Heparin 5000 units subcutaneous every 12 at 2200 hours and start Eliquis 5 mg PO BID per Dr Farley, Cardiology Fluids: Per nephrology GI ppx: carafate 1 gm TID, pantoprazole 40 mg iv qd. DW Medical Team and Dr. Baird. (Denys Head MD R1) Problem Qualifiers (1) Sepsis: Qualified Codes: A41.9 - Sepsis, unspecified organism Denys Head MD R1 Oct 26, 2016 16:39 Venita Baird MD Oct 27, 2016 15:16
[2016-10-26 17:28] LABS: APTT (PATIENT) 31.5 SEC (24.3-30.1)
[2016-10-26 18:03] LABS: BICARBONATE 28.6 MEQ/L (21.0-32.0); POTASSIUM 3.8 MEQ/L (3.5-5.1)
--- NOTE | 2016-10-26 18:12 | ECHRPT ---
Indication: ELEVATED LIVER ENZYMES CONCLUSIONS The left ventricular systolic function is hyperdynamic with an estimated ejection fraction in the ra nge of 65- 70%. Doppler parameters are consistent with impaired left ventricular relaxtion (grade 1 diastolic dysfun ction). Mild mitral valve regurgitation. There is mild to moderate tricuspid valve regurgitation. There is estimated moderate pulmonary hypertension present (range 50-60 mmHg). BP: 97 / 52 HR: 86 Rhythm: Sinus MEASUREMENTS (Male / Female) Normal Values Technical Quality:Fair 2D ECHO LV Diastolic Diameter PLAX 5.7 cm 4.2 - 5.9 / 3.9 - 5.3 cm LV Systolic Diameter PLAX 3.8 cm IVS Diastolic Thickness 0.9 cm 0.6 - 1.0 / 0.6 - 0.9 cm LVPW Diastolic Thickness 0.9 cm 0.6 - 1.0 / 0.6 - 0.9 cm LV Relative Wall Thickness 0.3 LVOT Diameter 1.8 cm Aortic Root Diameter 2.6 cm LA Systolic Diameter LX 3.2 cm 3.0 - 4.0 / 2.7 - 3.8 cm M-MODE AV Cusp Separation MM 1.5 cm DOPPLER AV Peak Velocity 205.0 cm/s AV Peak Gradient 16.8 mmHg AV Mean Gradient 8.0 mmHg AV Velocity Time Integral 39.5 cm LVOT Peak Velocity 151.0 cm/s LVOT Peak Gradient 9.1 mmHg LVOT Velocity Time Integral 30.1 cm LVOT Cardiac Index 3134.0 cm/minm AV Area Cont Eq vti 1.9 cm AV Area Cont Eq pk 1.9 cm Mitral E Point Velocity 98.7 cm/s Mitral A Point Velocity 115.0 cm/s Mitral E to A Ratio 0.9 LV E' Lateral Velocity 9.3 cm/s Mitral E to LV E' Lateral Ratio 10.7 LV E' Septal Velocity 5.8 cm/s Mitral E to LV E' Septal Ratio 17.2 TR Peak Velocity 353.0 cm/s TR Peak Gradient 49.8 mmHg PV Peak Velocity 68.7 cm/s PV Peak Gradient 1.9 mmHg FINDINGS LEFT VENTRICLE Normal left ventricular size. Wall thickness is normal. The left ventricular systolic function is hyperdynamic with an estimated ejection fraction in the ra nge of 65- 70%. Doppler parameters are consistent with impaired left ventricular relaxtion (grade 1 diastolic dysfun ction). RIGHT VENTRICLE Normal right ventricular size and systolic function. LEFT ATRIUM The left atrial size is moderately dilated. RIGHT ATRIUM The right atrial size is mildly dilated. ATRIAL SEPTUM The interatrial septum not well visualized. AORTA The aortic root and proximal ascending aorta are normal in size on limited imaging. MITRAL VALVE Mild thickening of the mitral valve leaflets. Mild mitral valve regurgitation. No mitral valve stenosis. AORTIC VALVE Aortic valve sclerosis is present. No aortic valve stenosis. No aortic valve regurgitation. TRICUSPID VALVE Structurally normal tricuspid valve. There is mild to moderate tricuspid valve regurgitation. There is estimated moderate pulmonary hypertension present (range 50-60 mmHg). PULMONARY VALVE The pulmonary valve is not well visualized. VESSELS The inferior vena cava (IVC) is normal in size. PERICARDIUM No pericardial effusion. Adonis Clay DO (Electronically Signed) Final Date:26 October 2016 18:11
[2016-10-26] MEDS: ATORVASTATIN 80 MG TAB PO SCH (20:27)
[2016-10-26] MEDS: APIXABAN 5 MG TABLET PO SCH (20:28)
[2016-10-27] VITALS: BP 106/55; PULSE 80; PULSE 84; RESP 18; TEMP 98.8; O2SAT 99
[2016-10-27] MEDS: INSULIN ASPART SUPPLEMENTAL SCALE SQ SCH ×2 (01:15→04:00)
[2016-10-27 04:00] VITALS: BP 102/56; PULSE 75; PULSE 76; RESP 18; TEMP 98.7; O2SAT 98
[2016-10-27] MEDS: PANTOPRAZOLE SODIUM 40 MG VIAL IV PUSH SCH (05:42)
[2016-10-27 05:54] LABS: AUTOMATED NEUTROPHIL # 6.3 TH/MM3 (1.8-7.7); BASOPHIL # 0.1 TH/MM3 (0-0.2); BASOPHIL % 0.7 % (0.0-2.0); EOSINOPHIL # 0.3 TH/MM3 (0-0.4); EOSINOPHIL % 2.9 % (0.0-4.0); HEMATOCRIT 38.6 % (35.0-46.0); HEMO FLAGS DIFF FINAL; LYMPH % 24.5 % (9.0-44.0); LYMPHOCYTE # 2.5 TH/MM3 (1.0-4.8); MEAN CELL VOLUME 84.1 FL (80.0-100.0); MEAN CORPUSCULAR HEMOGLOBIN 26.4 PG (27.0-34.0); MEAN CORPUSCULAR HGB CONC 31.4 % (32.0-36.0); MONO % 10.9 % (0.0-8.0); PLATELET COUNT 187 TH/MM3 (150-450); RED BLOOD COUNT 4.59 MIL/MM3 (4.00-5.30); RED CELL DISTRIBUTION WIDTH 15.1 % (11.6-17.2); WHITE BLOOD COUNT 10.3 TH/MM3 (4.0-11.0)
[2016-10-27 06:07] LABS: BICARBONATE 28.1 MEQ/L (21.0-32.0); POTASSIUM 3.5 MEQ/L (3.5-5.1)
[2016-10-27 08:27] VITALS: O2SAT 96
[2016-10-27] MEDS ORDERED: GLUCAGON 1 MG/ML VIAL OTHER PRN (08:45)
[2016-10-27] MEDS ORDERED: DEXTROSE 50% IN WATER 50 ML VIAL(D50) IV PRN (08:45)
[2016-10-27] MEDS: INSULIN DETEMIR 100 UNITS/ML VIAL SQ SCH ×2 (09:00→21:11)
[2016-10-27] MEDS: NYSTAT/DIPHENHY/LIDO MOUTHWASH (Adult) 120ML SWISH-SWAL SCH ×4 (09:00→21:11)
[2016-10-27] MEDS: DOCUSATE SODIUM 50 MG/SENNA 8.6 MG TAB PO SCH ×2 (09:00→21:11)
[2016-10-27] MEDS: ASPIRIN EC 81 MG TABEC PO SCH (09:00)
--- NOTE | 2016-10-27 09:22 | HHI.NPPN ---
Subjective History of Present Illness 66year old on Hemodialysis done yesterday admitted with DKA BG 736, had UTI Interval History patient was admitted with DKA, was hypoglycemic this morning. Seen during dialysis. 4K, UF: 3 liters. Tolerating it well, she is alert, oriented. Review of Systems General Constitutional: Fatigue Objective Data Data Vital Signs Date Time Temp Pulse Resp B/P (MAP) Pulse Ox O2 Delivery O2 Flow Rate FiO2 10/27/16 08:27 96 10/27/16 04:00 98.7 75 18 102/56 (71) 98 10/27/16 04:00 76 10/27/16 00:00 80 10/27/16 00:00 98.8 84 18 106/55 (72) 99 10/26/16 21:58 82 10/26/16 21:50 98.5 85 17 110/53 (72) 98 10/26/16 20:00 98.8 85 23 106/62 (77) 100 10/26/16 20:00 85 10/26/16 19:23 99 10/26/16 16:00 98.6 87 18 145/74 (97) 10/26/16 14:00 97.3 84 18 158/64 (95) 97 -: 10/27/16 0525 10/27/16 0525 Physical Exam General Appearance: Well Developed, Well Nourished Neck Neck Exam: Neck Supple Pulmonary Resp Exam: Clear Bilaterally, Breath Sounds Equal Cardiology CV Exam: Regular, Normal Sinus Rhythm Gastrointestinal/Abdomen GI Exam: Soft, Non-Tender, Bowel Sounds Present Extremeties Extremities Exam: No Edema Assessment/Plan Problem List: (1) End stage renal disease on dialysis ICD Codes: N18.6 - End stage renal disease; Z99.2 - Dependence on renal dialysis Status: Chronic Plan: Continue dialysis TTS. She is tolerating it well today. (2) Diabetes mellitus type 2 with complications ICD Codes: E11.8 - Diabetes mellitus type 2 with complications Status: Resolved Plan: Insulin coverage. (3) Paroxysmal atrial fibrillation ICD Codes: I48.0 - Paroxysmal atrial fibrillation Status: Acute Plan: was on Cardizem and converted back in NSR Romulo Aguirre MD Oct 27, 2016 09:22
[2016-10-27] MEDS: INSULIN NovoLIN REGULAR SUPPLEMENTAL SCALE SQ SCH ×2 (12:00→17:00)
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
[2016-10-27] MEDS ORDERED: MINERAL OIL ENEMA 118 ML BTL RECTAL ONE (13:00)
[2016-10-27 13:30] VITALS: BP 165/74; PULSE 86; RESP 16; TEMP 98; O2SAT 98
[2016-10-27] MEDS: APIXABAN 5 MG TABLET PO SCH ×2 (14:06→21:11)
[2016-10-27] MEDS: CEFEPIME INJ 1,000 MG in SODIUM CHLORIDE 0.9% INJ 100 ML IV SCH (14:06)
[2016-10-27] MEDS: POLYETHYLENE GLYCOL 17 GM PKG PO SCH (14:07)
[2016-10-27 15:00] VITALS: PULSE 114
[2016-10-27] MEDS ORDERED: CALC1CAP PO ×2 (18:43)
[2016-10-27 20:00] VITALS: BP 139/67; PULSE 82; PULSE 91; RESP 18; TEMP 96.8; O2SAT 97
[2016-10-27] MEDS: ATORVASTATIN 80 MG TAB PO SCH (21:11)
[2016-10-28] VITALS (8 sets, daily range): BP systolic 105–160; BP diastolic 57–78; PULSE 77–85; RESP 18–19; TEMP 96.3–98.6; O2SAT 94–99
[2016-10-28] MEDS: INSULIN NovoLIN REGULAR SUPPLEMENTAL SCALE SQ SCH ×5 (00:01→20:55)
[2016-10-28] MEDS: PANTOPRAZOLE SODIUM 40 MG VIAL IV PUSH SCH (04:49)
[2016-10-28 07:27] LABS: HEMATOCRIT 35.8 % (35.0-46.0); MEAN CELL VOLUME 84.5 FL (80.0-100.0); MEAN CORPUSCULAR HEMOGLOBIN 26.6 PG (27.0-34.0); MEAN CORPUSCULAR HGB CONC 31.5 % (32.0-36.0); PLATELET COUNT 164 TH/MM3 (150-450); RED BLOOD COUNT 4.24 MIL/MM3 (4.00-5.30); RED CELL DISTRIBUTION WIDTH 15.2 % (11.6-17.2); REVIEW FLAG FINAL; WHITE BLOOD COUNT 6.8 TH/MM3 (4.0-11.0)
[2016-10-28] MEDS: POLYETHYLENE GLYCOL 17 GM PKG PO SCH (07:54)
[2016-10-28] MEDS: ASPIRIN EC 81 MG TABEC PO SCH (07:54)
[2016-10-28] MEDS: NYSTAT/DIPHENHY/LIDO MOUTHWASH (Adult) 120ML SWISH-SWAL SCH ×4 (07:54→20:53)
[2016-10-28] MEDS: DOCUSATE SODIUM 50 MG/SENNA 8.6 MG TAB PO SCH (07:55)
[2016-10-28] MEDS: APIXABAN 5 MG TABLET PO SCH ×2 (07:55→20:53)
[2016-10-28 08:02] LABS: BICARBONATE 31.7 MEQ/L (21.0-32.0); POTASSIUM 4.9 MEQ/L (3.5-5.1)
[2016-10-28] MEDS: CALCIUM ACETATE 667 MG CAP PO SCH ×3 (08:49→16:30)
[2016-10-28] MEDS ORDERED: MINERAL OIL ENEMA 118 ML BTL RECTAL ONE (11:30)
[2016-10-28] MEDS ORDERED: GLYCERIN ADULT 2 GM SUPP RECTAL ONE (11:30)
--- NOTE | 2016-10-28 11:39 | HHI.NPPN ---
Subjective History of Present Illness 66year old on Hemodialysis done yesterday admitted with DKA BG 736, had UTI Interval History Sitting on a chair, comfortable. Review of Systems General Constitutional: Fatigue Objective Data Data Vital Signs Date Time Temp Pulse Resp B/P (MAP) Pulse Ox O2 Delivery O2 Flow Rate FiO2 10/28/16 04:00 98.5 85 18 121/60 (80) 97 10/28/16 04:00 79 10/28/16 00:00 98.6 85 19 105/57 (73) 97 10/28/16 00:00 83 10/27/16 20:00 96.8 82 18 139/67 (91) 97 10/27/16 20:00 91 10/27/16 15:00 114 10/27/16 13:30 98.0 86 16 165/74 (104) 98 -: 10/28/16 0545 10/28/16 0545 Physical Exam General Appearance: Well Developed, Well Nourished Neck Neck Exam: Neck Supple Pulmonary Resp Exam: Clear Bilaterally, Breath Sounds Equal Cardiology CV Exam: Regular, Normal Sinus Rhythm Gastrointestinal/Abdomen GI Exam: Soft, Non-Tender, Bowel Sounds Present Extremeties Extremities Exam: No Edema Assessment/Plan Problem List: (1) End stage renal disease on dialysis ICD Codes: N18.6 - End stage renal disease; Z99.2 - Dependence on renal dialysis Status: Chronic Plan: Continue dialysis TTS. Monitor fluid and electrolyte status. (2) Diabetes mellitus type 2 with complications ICD Codes: E11.8 - Diabetes mellitus type 2 with complications Status: Resolved Plan: Insulin coverage. (3) Paroxysmal atrial fibrillation ICD Codes: I48.0 - Paroxysmal atrial fibrillation Status: Acute Plan: was on Cardizem and converted back in NSR Plan She can be discharged from renal standpoint. Romulo Aguirre MD Oct 28, 2016 11:39
[2016-10-28] MEDS: INSULIN DETEMIR 100 UNITS/ML VIAL SQ SCH ×2 (11:44→20:53)
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
[2016-10-28] MEDS: CEFEPIME INJ 1,000 MG in SODIUM CHLORIDE 0.9% INJ 100 ML IV SCH (13:20)
[2016-10-28] MEDS: ATORVASTATIN 80 MG TAB PO SCH (20:53)
[2016-10-29] VITALS (10 sets, daily range): BP systolic 125–171; BP diastolic 62–87; PULSE 78–101; RESP 16–20; TEMP 97.1–98.1; O2SAT 95–99
[2016-10-29] MEDS: PANTOPRAZOLE SODIUM 40 MG VIAL IV PUSH SCH (05:20)
[2016-10-29] MEDS: ASPIRIN EC 81 MG TABEC PO SCH (07:46)
[2016-10-29] MEDS: NYSTAT/DIPHENHY/LIDO MOUTHWASH (Adult) 120ML SWISH-SWAL SCH ×4 (07:46→20:24)
[2016-10-29] MEDS: CALCIUM ACETATE 667 MG CAP PO SCH ×3 (07:47→16:00)
[2016-10-29] MEDS: APIXABAN 5 MG TABLET PO SCH ×2 (07:47→20:24)
[2016-10-29] MEDS: INSULIN NovoLIN REGULAR SUPPLEMENTAL SCALE SQ SCH ×4 (07:50→20:21)
--- NOTE | 2016-10-29 08:40 | PD.CARD.PN ---
Subjective Subjective Remarks Denies CP, SOB, dizziness, nausea, palpitations. Objective Medications Item Value Date Time Apixaban 5 mg 10/26/162099 (Eliquis) BID/PO 10/29/16 0747 Atorvastatin 80 mg 10/24/162099 Calcium HS/PO 10/28/162052 (Lipitor) Aspirin 81 mg 10/24/16 0900 (Ecotrin Ec) DAILY/PO 10/29/16 0746 Vital Signs / I&O Vital Signs Date Time Temp Pulse Resp B/P (MAP) Pulse Ox O2 Delivery O2 Flow Rate FiO2 10/29/16 04:00 97.9 82 16 136/71 (92) 97 10/29/16 04:00 80 10/29/16 00:00 98.1 86 17 125/65 (85) 95 10/29/16 00:00 79 10/28/16 20:00 98.3 85 18 145/63 (90) 96 10/28/16 20:00 82 10/28/16 16:00 96.3 81 18 160/78 (105) 94 10/28/16 15:25 81 10/28/16 12:34 77 10/28/16 11:00 96.4 78 18 131/61 (84) 99 I/O 10/28/16 10/28/16 10/28/16 10/29/16 10/29/16 10/29/16 07:00 15:00 23:00 07:00 15:00 23:00 Intake Total 240 ml 705 ml 240 ml Balance 240 ml 705 ml 240 ml Intake Oral 240 ml 480 ml 240 ml IV Total 225 ml Physical Exam GENERAL: Well developed, well nourished. No acute distress. HEENT: Jugular venous pressure is normal. CHEST: Lungs clear to auscultation anteriorly. CARDIAC: Regular rate and rhythm without S3, S4. I/ diffuse systolic murmur. Normal S2. ABDOMEN: Soft, nontender, no hepatosplenomegaly. Bowel sounds present. EXTREMITIES: No clubbing, cyanosis, or edema. Assessment and Plan Problem List: (1) Elevated troponin ICD Codes: R74.8 - Abnormal levels of other serum enzymes Status: Acute Plan: No further atypical CP. Cardiac w/u unremarkable including normal nuclear stress test and echo. REC OK to discharge home from a cardiac standpoint; would stop aspirin while patient taking Eliquis (2) Paroxysmal atrial fibrillation ICD Codes: I48.0 - Paroxysmal atrial fibrillation Status: Acute Plan: Remains in NSR. Agree with Eliquis with her relatively high thromboembolic risk. (3) Hypertension ICD Codes: I10 - Hypertension Status: Chronic Plan: Mostly normotensive. Continue to monitor as outpatient. Code Status full code Discussed Condition With patient Problem Qualifiers (1) Hypertension: Qualified Codes: I10 - Essential (primary) hypertension Andrea Calixto MD Oct 29, 2016 08:40
[2016-10-29] MEDS: INSULIN DETEMIR 100 UNITS/ML VIAL SQ SCH ×2 (08:56→20:24)
[2016-10-29 09:52] LABS: BICARBONATE 31.1 MEQ/L (21.0-32.0); POTASSIUM 4.7 MEQ/L (3.5-5.1)
[2016-10-29] MEDS ORDERED: PEG (High)/E-LYTE SOLN 4000 ML BTL PO ONE (10:00)
[2016-10-29] MEDS: CEFEPIME INJ 1,000 MG in SODIUM CHLORIDE 0.9% INJ 100 ML IV SCH (13:54)
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
--- NOTE | 2016-10-29 19:31 | HHI.NPPN ---
Subjective History of Present Illness 56-year-old -[place] female known to me from before with past medical history of hypertension, ischemic heart disease, peripheral vascular disease, diabetes mellitus, chronic anemia, hyperlipidemia, came with epigastric pain, nausea, shortness breath and decreased appetite. The patient has been on hemodialysis Saturday, and Saturday and she missed her dialysis yesterday because according to the patient the transportation did not come. She has this worsening epigastric pain and has nausea and not feeling well, has generalized abdominal pain and body pain , she was found that she has hyperkalemia and she has possible urinary tract infection and also has a high blood sugar. Her blood sugar on presentation was 736. The patient was treated as possible diabetic ketoacidosis. Additional Remarks Patient is alert, feeling better, no SOB, feeling better, no chest pain. Review of Systems General Constitutional: Fatigue Respiratory Lungs: SOB Cardiovascular Cardiac: SIDDIQI Gastrointestinal Gastrointestinal: Abdominal Pain, Nausea & Vomiting Objective Data Data 10/29/16 10/30/16 19:00 07:00 Intake Total 580 ml Balance 580 ml Intake Oral 480 ml IV Total 100 ml # Voids 3 Vital Signs Date Time Temp Pulse Resp B/P (MAP) Pulse Ox O2 Delivery O2 Flow Rate FiO2 10/29/16 16:21 101 10/29/16 16:00 97.1 83 20 158/71 (100) 99 10/29/16 12:34 97.2 86 18 171/87 (115) 98 10/29/16 11:04 78 10/29/16 08:13 79 10/29/16 08:00 98.0 80 17 138/62 (87) 99 10/29/16 04:00 97.9 82 16 136/71 (92) 97 10/29/16 04:00 80 10/29/16 00:00 98.1 86 17 125/65 (85) 95 10/29/16 00:00 79 10/28/16 20:00 98.3 85 18 145/63 (90) 96 10/28/16 20:00 82 -: 10/28/16 0545 10/29/16 0820 Physical Exam General Appearance: No Acute Distress, Comfortable Eyes Eye Exam: Pupils Equal Throat Throat Exam: Oral Mucosa [place] & Moist Neck Neck Exam: Neck Supple Pulmonary Resp Exam: Breath Sounds Equal, No Distress, Rhonchi, Decreased Bases Cardiology CV Exam: Regular, Normal Sinus Rhythm Gastrointestinal/Abdomen GI Exam: Soft, Non-Tender, Distended Extremeties Extremities Exam: Trace Edema Neurologic Neuro Exam: Alert, Awake, Oriented Psychiatric Psych Exam: Appropriate Responses Assessment/Plan Assessment Summary: Anemia of CKD, Hypertension, Diabetes Mellitus, End Stage Renal Disease Problem List: (1) Diabetes mellitus type 2 with hyperosmolar coma, uncontrolled ICD Codes: E11.01 - Type 2 diabetes mellitus with hyperosmolarity with coma Status: Chronic (2) Anemia ICD Codes: D64.9 - Anemia Status: Chronic (3) HYPERTENSION NOS Status: Chronic (4) Hyperkalemia ICD Codes: E87.5 - Hyperkalemia Status: Resolved (5) End stage renal disease on dialysis ICD Codes: N18.6 - End stage renal disease; Z99.2 - Dependence on renal dialysis Status: Chronic Plan: Continue dialysis TTS. Monitor fluid and electrolyte status. (6) Hypertension ICD Codes: I10 - Hypertension Status: Chronic (7) Atrial fibrillation with RVR ICD Codes: I48.91 - Unspecified atrial fibrillation (8) Diabetes mellitus type 2 with complications ICD Codes: E11.8 - Diabetes mellitus type 2 with complications Status: Resolved Plan: Insulin coverage. (9) DKA (diabetic ketoacidoses) ICD Codes: E13.10 - Other specified diabetes mellitus with ketoacidosis without coma Status: Acute Plan patient has improvement in the BS and acidosis. BP is stable. Started eating, no SOB. HD to continue TTS. BP is stable, afebrile. Continue antibiotics. Echo. and stress test noted. For CT abd. with PO Contrast. Continue same. HD will be in the AM. Problem Qualifiers (1) Hypertension: Qualified Codes: I10 - Essential (primary) hypertension (2) DKA (diabetic ketoacidoses): Qualified Codes: E08.10 - Diabetes mellitus due to underlying condition with ketoacidosis without coma Skyler Zafar MD Oct 29, 2016 19:31
[2016-10-29] MEDS: ATORVASTATIN 80 MG TAB PO SCH (20:24)
[2016-10-30] VITALS: BP 140/64; PULSE 82; PULSE 85; RESP 18; TEMP 98.4; O2SAT 98
[2016-10-30 04:00] VITALS: BP 136/63; PULSE 75; PULSE 83; RESP 17; TEMP 97.4; O2SAT 97
[2016-10-30] MEDS: PANTOPRAZOLE SODIUM 40 MG VIAL IV PUSH SCH (04:47)
[2016-10-30 08:00] VITALS: BP 149/75; PULSE 75; PULSE 81; RESP 18; TEMP 98; O2SAT 99
[2016-10-30] MEDS: CALCIUM ACETATE 667 MG CAP PO SCH ×2 (08:00→14:40)
[2016-10-30] MEDS: INSULIN NovoLIN REGULAR SUPPLEMENTAL SCALE SQ SCH ×2 (08:00→12:00)
[2016-10-30 08:44] LABS: HEMATOCRIT 35.2 % (35.0-46.0); MEAN CELL VOLUME 84.5 FL (80.0-100.0); MEAN CORPUSCULAR HEMOGLOBIN 26.8 PG (27.0-34.0); MEAN CORPUSCULAR HGB CONC 31.7 % (32.0-36.0); PLATELET COUNT 190 TH/MM3 (150-450); RED BLOOD COUNT 4.16 MIL/MM3 (4.00-5.30); RED CELL DISTRIBUTION WIDTH 15.2 % (11.6-17.2); REVIEW FLAG FINAL; WHITE BLOOD COUNT 6.8 TH/MM3 (4.0-11.0)
[2016-10-30] MEDS: APIXABAN 5 MG TABLET PO SCH (09:00)
[2016-10-30] MEDS: INSULIN DETEMIR 100 UNITS/ML VIAL SQ SCH (09:00)
[2016-10-30] MEDS: NYSTAT/DIPHENHY/LIDO MOUTHWASH (Adult) 120ML SWISH-SWAL SCH ×2 (09:00→14:43)
[2016-10-30 09:15] LABS: BICARBONATE 30.1 MEQ/L (21.0-32.0); POTASSIUM 5.2 MEQ/L (3.5-5.1)
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
[2016-10-30 13:00] VITALS: BP 147/71; PULSE 87; RESP 18; TEMP 98; O2SAT 96
[2016-10-30] MEDS: CEFEPIME INJ 1,000 MG in SODIUM CHLORIDE 0.9% INJ 100 ML IV SCH (14:00)
[2016-10-30] MEDS ORDERED: ENEMENE6 RECTAL (14:44)
[2016-10-30] MEDS ORDERED: APIX5TAB PO (14:44)
[2016-10-30] MEDS ORDERED: LANTUS2P SQ (14:44)
[2016-10-30] MEDS ORDERED: GLYC2SUP RECTAL (14:49)
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
[2016-11-07] MEDS ORDERED: INSU-92 (14:32)
[2016-11-07] MEDS ORDERED: [UNRECOGNIZED DRUG - CODE] (14:32)
[2016-11-22] MEDS ORDERED: OXYC30TA PO (14:25)
[2016-11-22] MEDS ORDERED: KION15SU PO (14:36)
[2016-11-22] MEDS ORDERED: APIX5TAB PO (14:36)
[2016-11-22] MEDS ORDERED: [UNRECOGNIZED DRUG - CODE] (14:36)
[2016-11-22] MEDS ORDERED: WALKER/ADULT/FO1 MIS (14:38)
== END 2016-10-30 16:01 | disposition home or self-care (01) | DRG 871 ==
LOC: NEPC 18:40 → NEDA 22:35 → HIME 10-24 06:25 → HOCA 10-26 21:37 → UNDODISIN 10-27 13:39
PROVIDERS: ADMIT Family Medicine; ATTEND Family Medicine
PROC: 5A1D60Z (ICD-10-PCS; principal; 2016-10-23)
DX: A41.9 Sepsis, unspecified organism (principal); R65.21 Severe sepsis with septic shock; E11.00 Type 2 diabetes mellitus with hyperosmolarity without nonketotic hyperglycemic-hyperosmolar coma (NKHHC); G93.41 Metabolic encephalopathy; I12.0 Hypertensive chronic kidney disease with stage 5 chronic kidney disease or end stage renal disease; N18.6 End stage renal disease; F05 Delirium due to known physiological condition; I48.0 Paroxysmal atrial fibrillation; N39.0 Urinary tract infection, site not specified; E87.5 Hyperkalemia; E11.22 Type 2 diabetes mellitus with diabetic chronic kidney disease; E78.5 Hyperlipidemia, unspecified; Z79.4 Long term (current) use of insulin; K44.9 Diaphragmatic hernia without obstruction or gangrene; K59.09 Other constipation; Z99.2 Dependence on renal dialysis; Z91.15 Patient's noncompliance with renal dialysis; G89.29 Other chronic pain; E11.51 Type 2 diabetes mellitus with diabetic peripheral angiopathy without gangrene; Z79.82 Long term (current) use of aspirin; E11.649 Type 2 diabetes mellitus with hypoglycemia without coma; E87.6 Hypokalemia; D63.1 Anemia in chronic kidney disease; R10.84 Generalized abdominal pain; R07.9 Chest pain, unspecified; K21.9 Gastro-esophageal reflux disease without esophagitis; R94.31 Abnormal electrocardiogram [ECG] [EKG]
CPT/HCPCS: 36600; 71010; 74000; 74020; 74176; 76937; 78452; 80048; 80053; 80061; 81001; 82010; 82150; 82533; 82550; 82552; 82805; 82948; 83605; 83690; 83735; 84100; 84132; 84443; 84484; 85025; 85027; 85384; 85610; 85730; 87040; 87086; 90935; 93005; 93017; 93306; 94664; 96361; 96365; 96374; 96375; 99284; A9502; C9113; J0610; J0692; J0696; J1644; J1815; J2270; J2405; J2785; J3370; J3480; J7030; J7040; J7050; J7070; J7611; P9047